=== PATIENT | male | born 1970 | race Two or more races ===

== ENCOUNTER 2017-02-28 15:59 | Inpatient (IN) | payer BC ==
[~2017-02-28] VITALS: Ht 177.8 cm; Wt 93.2 kg
[~2017-02-28 15:59] MED LIST: BENA40TA54 PO; FERR325C PO; FOLI-49 PO; METO-448 PO; MULT-552 PO; PANT40TA3 PO
[2017-02-28] MEDS ORDERED: morphine 4 MG/ML VIAL IV STA (16:20)
[2017-02-28] MEDS ORDERED: SODIUM CHLORIDE 0.9% 1L BAG IV* STA ×2 (16:20→17:01)
--- NOTE | 2017-02-28 16:25 | ERD ---
ER Documentation Chief Complaint Date/Time DATE: 02/28/17 TIME: 16:23 Chief Complaint RT SIDE ABD PAIN , PALPITATIONS , SOB , HAVE BEEN DRINKING X 1 WEEK HPI Patient is a 46-year-old male who presents with 1 day of vaginal onset, constant chest pressure associated with anxiety and shortness of breath. Patient reports a history of alcoholism with abstinence for 1 year, but he relapsed 1 week ago and has been drinking heavily. He also complains of right- sided back pain and right lower quadrant pain for 2 days. He reports subjective fever, no vomiting, no dysuria, no hematuria. ROS All systems reviewed and are negative except as per history of present illness. Medications Home Meds Active Scripts Pantoprazole* (Protonix*) 40 Mg Tablet.dr, 40 MG PO DAILY, #20 TAB Prov:JEFF WILKINSON MD 06/21/15 Folic Acid* (Folic Acid*) 1 Mg Tablet, 1 MG PO DAILY, #30 TAB Prov:LYNDA CASILLAS MD 06/01/15 Reported Medications Metoprolol Tartrate* (Lopressor*) 50 Mg Tab, 50 MG PO BID, #60 TAB 02/28/17 Benazepril Hcl* (Benazepril Hcl*) 20 Mg Tablet, 20 MG PO DAILY, #30 TAB 02/28/17 Multivitamins* (Once Daily*) 1 Tab Tablet, 1 TAB PO DAILY, TAB 08/27/15 Ferrous Sulfate (Iron) 325 Mg Capsr, 325 MG PO DAILY 05/14/15 Discontinued Reported Medications Benazepril Hcl* (Benazepril Hcl*) 40 Mg Tablet, 40 MG PO DAILY, #30 TAB 02/28/17 Discontinued Scripts Metoprolol Tartrate* (Lopressor*) 25 Mg Tab, 50 MG PO BID, #60 TAB Prov:LYNDA CASILLAS MD 06/01/15 Benazepril Hcl* (Lotensin*) 40 Mg Tab, 20 MG PO DAILY, #30 TAB Prov:LYNDA CASILLAS MD 06/01/15 Allergies Allergies: Coded Allergies: No Known Allergies (Verified Allergy, Mild, 08/27/15) PMhx/Soc Past medical history: Alcoholism, hypertension Past surgical history: Denies Social history: Alcohol abuse, smokes cigarettes, denies illicit drugs. History of Surgery: No Anesthesia Reaction: No Hx Neurological Disorder: No Hx Respiratory Disorders: No Hx Cardiac Disorders: Yes (HTN) Hx Psychiatric Problems: No Hx Miscellaneous Medical Probl: No Hx Alcohol Use: Yes Hx Substance Use: Yes Hx Tobacco Use: Yes FmHx Family History: No coronary disease, No diabetes Physical Exam Vitals Vital Signs Date Time Temp Pulse Resp B/P Pulse Ox O2 Delivery O2 Flow Rate FiO2 02/28/17 17:06 Nasal Cannula 2 02/28/17 17:02 98.9 98 17 106/69 98 Nasal Cannula 2.0 02/28/17 16:02 99.8 118 18 140/84 96 Physical Exam Const: Alert, in mild distress Head: Atraumatic Eyes: Normal Conjunctiva, no pallor, no icterus ENT: Normal External Ears, Nose and Mouth. Tacky mucous membranes Neck: Full range of motion..~ No meningismus. No JVD Resp: Clear to auscultation bilaterally, no wheezes, no rales Cardio: Regular rate and rhythm, no murmurs Abd: Soft, right lower quadrant tenderness, no guarding, no rebound Skin: No petechiae or rashes Back: No midline, mild right flank tenderness, no CVA tenderness Ext: No cyanosis, or edema Neur: Awake and alert, cranial nerves II through XII intact bilaterally, patient moves and feels 4 extremities appropriately, no tremor Psych: Appears anxious, normal behavior, appropriately interactive Result Diagram: 02/28/17 1640 02/28/17 1640 Results 24 hrs Laboratory Tests Test 02/28/17 16:40 02/28/17 16:50 02/28/17 18:35 White Blood Count 8.710^3/ul Red Blood Count 4.9610^6/ul Hemoglobin 15.2g/dl Hematocrit 43.6% Mean Corpuscular Volume 87.9fl Mean Corpuscular Hemoglobin 30.6pg Mean Corpuscular Hemoglobin Concent 34.9g/dl Red Cell Distribution Width 14.5% Platelet Count 69315^3/UL Mean Platelet Volume 9.9fl Neutrophils % 54.0% Lymphocytes % 39.7% Monocytes % 4.6% Eosinophils % 0.7% Basophils % 0.7% Nucleated Red Blood Cells % 0.0/100WBC Neutrophils # 4.710^3/ul Lymphocytes # 3.410^3/ul Monocytes # 0.410^3/ul Eosinophils # 0.110^3/ul Basophils # 0.110^3/ul Nucleated Red Blood Cells # 0.010^3/ul Prothrombin Time 12.0Sec Prothrombin Time Ratio 0.9 INR International Normalized Ratio 0.89 Activated Partial Thromboplast Time 27.3Sec Sodium Level 139mmol/L Potassium Level 3.6mmol/L Chloride Level 95mmol/L Carbon Dioxide Level 22mmol/L Anion Gap 26 Blood Urea Nitrogen 16mg/dl Creatinine 0.81mg/dl Glucose Level 92mg/dl Lactic Acid Level 4.9mmol/L 3.7mmol/L Calcium Level 9.8mg/dl Total Bilirubin 0.4mg/dl Direct Bilirubin 0.00mg/dl Indirect Bilirubin 0.4mg/dl Aspartate Amino Transf (AST/SGOT) 61IU/L Alanine Aminotransferase (ALT/SGPT) 43IU/L Alkaline Phosphatase 78IU/L Troponin I < 0.012ng/ml Total Protein 8.3g/dl Albumin 4.8g/dl Globulin 3.50g/dl Albumin/Globulin Ratio 1.37 Lipase 143U/L Urine Color LT. YELLOW Urine Clarity CLEAR Urine pH 5.5 Urine Specific [place] 1.020 Urine Ketones NEGATIVE Urine Nitrite NEGATIVE Urine Bilirubin NEGATIVE Urine Urobilinogen 0.2 E.U./dL Urine Leukocyte Esterase NEGATIVE Urine Microscopic RBC NONE SEEN/HPF Urine Microscopic WBC NONE SEEN/HPF Urine Mucus FEW Urine Hemoglobin 1+ Urine Glucose NEGATIVE% Urine Total Protein NEGATIVE Current Medications Medications (Trade) Dose Ordered Sig/Jewel Route PRN Reason Start Time Stop Time Status Last Admin Dose Admin Sodium Chloride (NS) 2,770 ml BOLUS OVER 2 HOURS STAT IV* 02/28/17 16:20 02/28/17 16:58 DC 02/28/17 16:45 Morphine Sulfate (morphine) 4 mg ONCE STAT IV 02/28/17 16:20 02/28/17 16:22 DC 02/28/17 16:47 Lorazepam (Ativan) 2 mg ONCE ONCE IV 02/28/17 16:30 02/28/17 16:31 DC 02/28/17 16:46 Sodium Chloride (NS) 2,770 ml BOLUS OVER 2 HOURS STAT IV* 02/28/17 17:01 02/28/17 17:03 DC Lorazepam (Ativan) 2 mg ONCE ONCE IV 02/28/17 18:30 02/28/17 18:31 DC 02/28/17 18:25 IV Flush 10 ml 10 ml STK-MED ONCE .ROUTE 02/28/17 19:36 02/28/17 19:37 DC 02/28/17 19:44 Sodium Chloride (NS) 100 ml @ ud STK-MED ONCE .ROUTE 02/28/17 19:36 02/28/17 19:37 DC 02/28/17 19:44 Iohexol 150 ml 150 ml STK-MED ONCE .ROUTE 02/28/17 19:36 02/28/17 19:37 DC 02/28/17 19:44 Sodium Chloride (NS) 1,000 ml @ 1,000 mls/hr Q1H ONCE IV 02/28/17 20:30 02/28/17 21:29 Procedures/MDM EKG read by me: Time 1633, rate 94 Rhythm: Normal sinus [place]: Normal Intervals: Normal ST-T waves: Nonspecific ST changes in V5 V6, ST depression with T-wave inversion in leads III and aVF Ectopy: No Q-waves: No Impression: ST-T wave changes in inferior and lateral leads may be due to ischemia. MDM: Patient is a 46-year-old male who presents to the ER with multiple complaints. He reports chest pressure, abdominal pain, and anxiety due to alcohol withdrawal. He was found to have a low-grade temperature, and elevated lactic acid, which raised some suspicion for sepsis. However, the patient's temperature normalized and he never had a true fever, he has no leukocytosis, no source of infection on workup. Initially, antibiotics were not given due to low suspicion for sepsis. Since the lactic acid remains elevated, I will give the patient a dose of Rocephin to cover for occult sepsis. It is also possible that lactic acid could be due to alcohol abuse with liver dysfunction. However , there is no evidence of cirrhosis on abdominal CT scan. CT scan also does not demonstrate any abnormality of the appendix, gallbladder, urinary tract, or intestines. I have low suspicion for intestinal ischemia due to normal with WBC count, resolution of pain, and significant abdominal tenderness more than reported pain. Repeat abdominal exam is now benign. The patient does have ST depressions with T-wave inversion in the inferior leads of his EKG. His first troponin is negative. His symptoms have resolved with Ativan and IV fluids, but his lactic acid remains elevated. I will admit him to Dr. Jack for further workup of lactic acidosis and chest pain. He was given aspirin in the ER. Cultures were sent prior to administration of antibiotics. The patient complains primarily of anxiety, but does not have tremor or other symptoms of alcohol withdrawal. Departure Diagnosis: Primary Impression: Chest pain Chest pain type: precordial pain Qualified Code: R07.2 - Precordial pain Additional Impressions: Alcohol withdrawal syndrome Complication of substance-induced condition: uncomplicated Qualified Code: F10.230 - Alcohol withdrawal syndrome, uncomplicated Lactic acidosis Condition: Stable ROSE CAGE MD February 28, 2017 16:25
[2017-02-28] MEDS ORDERED: LORAZEPAM 2 MG INJ IV ONE ×2 (16:30→18:30)
[2017-02-28] MEDS ORDERED: METO-429 PO (16:41)
[2017-02-28] MEDS ORDERED: BENA20TA48 PO (16:41)
[2017-02-28] MEDS ORDERED: BENA40TA41 PO (16:41)
--- NOTE | 2017-02-28 16:49 | RADRPT ---
PROCEDURE: XR Chest. CLINICAL INDICATION: Chest pain. Possible sepsis TECHNIQUE: Portable AP upright views of the chest were obtained. COMPARISON: 08/27/2015 FINDINGS: The cardiomediastinal silhouette is within normal limits. The lungs are clear. There is no evidenc e for pleural effusion, pneumothorax or pulmonary vascular congestion. The osseous structures are i ntact with no evidence for acute abnormality. RPTAT:HJJR IMPRESSION: No evidence for acute intrathoracic pathology. Physician Rei Date Time Electronically viewed and signed by Jus Mcclain Physician on 02/28/2017 16:49 /
[2017-02-28 17:02] VITALS: TEMP 98.9
[2017-02-28 17:26] LABS: ADD SCAN DIFF NO
[2017-02-28 17:28] LABS: BASOPHIL # 0.1 10^3/ul (0.0-0.1); BASOPHILS % 0.7 % (0.0-2.0); EOSINOPHILS # 0.1 10^3/ul (0.0-0.5); EOSINOPHILS % 0.7 % (0.0-7.0); HEMATOCRIT 43.6 % (42.0-52.0); HEMOGLOBIN 15.2 g/dl (14.0-18.0); LYMPHOCYTES # 3.4 10^3/ul (0.8-2.9); LYMPHOCYTES % 39.7 % (15.0-51.0); MEAN CORPUSCULAR HEMOGLOBIN 30.6 pg (29.0-33.0); MEAN CORPUSCULAR HGB CONC 34.9 g/dl (32.0-37.0); MEAN CORPUSCULAR VOLUME 87.9 fl (82.0-101.0); MEAN PLATELET VOLUME 9.9 fl (7.4-10.4); MONOCYTE # 0.4 10^3/ul (0.3-0.9); MONOCYTES % 4.6 % (0.0-11.0); NEUTROPHIL # 4.7 10^3/ul (1.6-7.5); PLATELET COUNT 228 10^3/UL (140-415); RED BLOOD COUNT 4.96 10^6/ul (4.70-6.10); RED CELL DISTRIBUTION WIDTH 14.5 % (11.5-14.5); WHITE BLOOD COUNT 8.7 10^3/ul (4.8-10.8)
[2017-02-28 17:37] LABS: INR 0.89; PT RATIO 0.9
[2017-02-28 17:38] LABS: PARTIAL THROMBOPLASTIN TIME 27.3 Sec (25.0-35.0)
[2017-02-28 17:47] LABS: ADD UMIC YES; URINE BILIRUBIN (Dip) NEGATIVE (NEGATIVE); URINE BLOOD (Dip) 1+ (NEGATIVE); URINE COLOR LT. YELLOW (YELLOW); URINE GLUCOSE (Dip) NEGATIVE (NEGATIVE); URINE KETONES (Dip) NEGATIVE (NEGATIVE); URINE LEUKOCYTE ESTERASE (Dip) NEGATIVE (NEGATIVE); URINE NITRITE (Dip) NEGATIVE (NEGATIVE); URINE TOTAL PROTEIN (Dip) NEGATIVE (NEGATIVE); URINE UROBILINOGEN (Dip) 0.2 E.U./dL (0.1-1.0)
[2017-02-28 17:51] LABS: ALBUMIN 4.8 g/dl (3.3-4.9); CHLORIDE 95 mmol/L (97-110)
[2017-02-28 17:52] LABS: POTASSIUM 3.6 mmol/L (3.5-5.1); SODIUM 139 mmol/L (135-144)
[2017-02-28 17:54] LABS: ALBUMIN/GLOBULIN RATIO 1.37; ALKALINE PHOSPHATASE 78 IU/L (42-121); ANION GAP 26 (8-16); ASPARTATE AMINO TRANSFERASE 61 IU/L (15-46); BILIRUBIN,INDIRECT 0.4 mg/dl (0-1.1); BILIRUBIN,TOTAL 0.4 mg/dl (0.2-1.3); CARBON DIOXIDE 22 mmol/L (21-31); CREATININE 0.81 mg/dl (0.61-1.24); TOTAL PROTEIN 8.3 g/dl (6.1-8.1)
[2017-02-28 17:55] LABS: ALANINE AMINOTRANSFERASE 43 IU/L (13-69); BLOOD UREA NITROGEN 16 mg/dl (7-20); CALCIUM 9.8 mg/dl (8.4-10.2); GLUCOSE 92 mg/dl (70-220)
[2017-02-28 18:07] LABS: MUCUS,URINE FEW; URINE RBCS NONE SEEN /HPF (0)
[2017-02-28 18:09] LABS: TROPONIN-I < 0.012 ng/ml (0.00-0.12)
[2017-02-28] MEDS ORDERED: SOD CHLORIDE 0.9% 100 ML ONE (19:36)
[2017-02-28] MEDS ORDERED: IOHEXOL 300MG/ML 150 ML BTL ONE (19:36)
--- NOTE | 2017-02-28 19:51 | RADRPT ---
PROCEDURE: CT Abdomen and Pelvis with contrast. CLINICAL INDICATION: Sepsis, pain TECHNIQUE: CT of the abdomen and pelvis was performed on a multi-detector scanner following the un complicated IV administration of 100 cc of Omnipaque 300. Coronal and sagittal images were reformat haydee from the axial data set. One or more of the following dose reduction techniques were used: auto mated exposure control, adjustment of the mA and/or kV according to patient size, use of iterative reconstruction technique. CTDI = 15.69 mGy. DLP = 972.63 mGy-cm. COMPARISON: CT, 02/22/2015 FINDINGS: CT abdomen: The lung bases are clear. The heart size is normal, without pericardial effusion. The liver is fat ty infiltrated, without evidence of focal mass. Gallbladder, biliary tree, pancreas, spleen, adrena l glands and kidneys are unremarkable. No urolithiasis or obstructive uropathy is identified. The stomach is grossly unremarkable. There is no abdominal aortic aneurysm or dissection. Aortic vascular calcifications are present. T here is no retroperitoneal lymphadenopathy. The lamont hepatis region is clear. CT pelvis: No bowel obstruction, free intraperitoneal air or abscess is identified. The appendix is well visua lized and normal. No diverticulosis, diverticulitis or colitis is identified. Urinary bladder is g rossly unremarkable. No pelvic mass, free fluid or lymphadenopathy is identified. Small fat-contain ing left inguinal hernia is noted without incarceration. The surrounding osseous structures are remarkable for degenerative spondylosis of the spine. No ost eolytic or osteoblastic lesion is detected. IMPRESSION: 1. Hepatic steatosis is noted. 2. Aortoiliac atherosclerotic calcifications are present. 3. Small fat-containing left inguinal hernia is noted, without incarceration. 4. No mass, abscess, lymphadenopathy, or focal acute inflammatory process is identified. RPTAT: QQ .Rolando Masterson MD, Date Time Electronically viewed and signed by .Rolando Masterson MD, on 02/28/2017 19:51 .R/
[2017-02-28] MEDS ORDERED: ASPIRIN 81 MG TAB PO ONE (20:30)
[2017-02-28] MEDS ORDERED: morphine 2 MG INJ IV PRN (20:30)
[2017-02-28] MEDS ORDERED: ACETAMINOPHEN 325 MG TAB PO PRN ×2 (20:30)
[2017-02-28] MEDS ORDERED: ONDANSETRON 4 MG INJ IV PRN ×2 (20:30)
[2017-02-28] MEDS ORDERED: NITROGLYCERIN (SL) 0.4 MG TAB SL PRN (20:30)
[2017-02-28] MEDS ORDERED: NA PHOSPHATE/BIPHOS 133 ML ENEMA PR PRN (20:30)
[2017-02-28] MEDS ORDERED: SOD CHLORIDE 0.9% 1,000 ML IV ONE (20:30)
[2017-02-28] MEDS ORDERED: hydrALAzine 20 MG INJ IV PRN (20:30)
[2017-02-28] MEDS ORDERED: MAGNESIUM HYDROXIDE 30ML CUP PO PRN (20:30)
[2017-02-28] MEDS ORDERED: NACL 0.9% 3 ML SYG IV SCH (20:30)
[2017-02-28] MEDS ORDERED: HYDROCODONE/APAP (5/325) TAB PO PRN (20:30)
[2017-02-28] MEDS ORDERED: CEFTRIAXONE 1 GM/50 ML (PMX) 50 ML IVPB ONE (20:30)
[2017-02-28] MEDS ORDERED: ALBUTEROL/IPRATROPIUM (NEB) 3 ML AMP HHN PRN (20:30)
[2017-02-28] MEDS ORDERED: DOCUSATE SODIUM 100 MG CAP PO PRN (20:30)
[2017-02-28 21:37] VITALS: PULSE 81
[2017-02-28] MEDS: SOD CHLORIDE 0.9% 1,000 ML IV SCH (21:53)
[2017-02-28] MEDS: METOPROLOL 50 MG TAB PO SCH (21:54)
[2017-02-28] MEDS: HEPARIN 5,000 UNIT/0.5 ML VIAL SC SCH (22:09)
[2017-02-28 22:20] VITALS: Ht 177.8 cm; Wt 93.2 kg
[2017-02-28 22:27] VITALS: BP 140/87; RESP 18
[2017-02-28] MEDS: LORAZEPAM 2 MG INJ IV PRN (23:00)
[2017-02-28 23:14] LABS: CREATINE KINASE 691 IU/L (23-200)
[2017-02-28 23:25] LABS: CK-MB 1.73 ng/ml (0.0-2.4)
[2017-02-28 23:35] LABS: TROPONIN-I < 0.012 ng/ml (0.00-0.12)
[2017-03-01] VITALS (8 sets, daily range): BP systolic 138–159; BP diastolic 82–90; PULSE 74–95; RESP 17–20
[2017-03-01] MEDS ORDERED: ZOLPIDEM 5 MG TAB PO PRN (02:10)
[2017-03-01 02:50] LABS: CREATINE KINASE 680 IU/L (23-200)
[2017-03-01 03:03] LABS: CK-MB 1.52 ng/ml (0.0-2.4)
[2017-03-01 03:05] LABS: TROPONIN-I < 0.012 ng/ml (0.00-0.12)
[2017-03-01] MEDS ORDERED: PANTOPRAZOLE (EC) 40 MG TAB PO SCH (06:00)
[2017-03-01 06:55] LABS: CHOL/HDL RATIO 4.1 RATIO
[2017-03-01 07:27] LABS: THYROID STIMULATING HORMONE 2.82 MIU/L (0.465-4.680)
[2017-03-01] MEDS: LORAZEPAM 2 MG INJ IV PRN (08:09)
[2017-03-01] MEDS: METOPROLOL 50 MG TAB PO SCH (08:09)
[2017-03-01 08:11] LABS: ADD SCAN DIFF NO
[2017-03-01 08:16] LABS: BASOPHILS % 0.5 % (0.0-2.0); EOSINOPHILS # 0.1 10^3/ul (0.0-0.5); HEMATOCRIT 37.7 % (42.0-52.0); HEMOGLOBIN 12.8 g/dl (14.0-18.0); LYMPHOCYTES # 1.9 10^3/ul (0.8-2.9); MEAN CORPUSCULAR HEMOGLOBIN 30.5 pg (29.0-33.0); MEAN PLATELET VOLUME 9.8 fl (7.4-10.4); MONOCYTE # 0.5 10^3/ul (0.3-0.9); MONOCYTES % 8.1 % (0.0-11.0); NEUTROPHIL # 3.3 10^3/ul (1.6-7.5); NEUTROPHILS % 57.1 % (39.0-77.0); PLATELET COUNT 156 10^3/UL (140-415); RED BLOOD COUNT 4.19 10^6/ul (4.70-6.10); RED CELL DISTRIBUTION WIDTH 14.1 % (11.5-14.5); WHITE BLOOD COUNT 5.8 10^3/ul (4.8-10.8)
[2017-03-01] MEDS: SOD CHLORIDE 0.9% 1,000 ML IV SCH (08:29)
[2017-03-01] MEDS: HEPARIN 5,000 UNIT/0.5 ML VIAL SC SCH (08:29)
[2017-03-01 08:35] LABS: POTASSIUM 4.5 mmol/L (3.5-5.1)
[2017-03-01 08:38] LABS: CREATININE 0.7 mg/dl (0.61-1.24)
[2017-03-01 08:39] LABS: CALCIUM 9.2 mg/dl (8.4-10.2); MAGNESIUM 1.5 mg/dl (1.7-2.5); PHOSPHORUS 3.4 mg/dl (2.5-4.9)
[2017-03-01] MEDS ORDERED: FOLIC ACID 1 MG TAB PO SCH (09:00)
[2017-03-01] MEDS ORDERED: FERROUS SULFATE (EC) 325 MG TAB PO SCH (09:00)
[2017-03-01] MEDS ORDERED: BENAZEPRIL 20 MG TAB PO SCH (09:00)
[2017-03-01] MEDS ORDERED: MULTIVITAMINS THERAPEUTIC TAB PO SCH (09:00)
[2017-03-01] MEDS ORDERED: ASPIRIN (EC) 325 MG TAB PO SCH (09:00)
[2017-03-01] MEDS ORDERED: MULTIVITAMINS 10 ML, THIAMINE 100 MG, FOLIC ACID 1 MG in SOD CHLORIDE 0.9% 1,000 ML IVPB SCH (09:00)
[2017-03-01] MEDS ORDERED: LEVOFLOXACIN 750MG/D5W (PMX) 150 ML IVPB SCH (09:00)
[2017-03-01] MEDS ORDERED: NON-FORMULARY/PATIENT OWN MED (Ferrous Sulfate (Iron) 325 MG) PO SCH (09:00)
[2017-03-01] MEDS: CHLORDIAZEPOXIDE 25 MG CAP PO SCH ×2 (09:43→13:27)
--- NOTE | 2017-03-01 10:12 | HP ---
Date/Time of Note Date/Time of Note DATE: 03/01/17 TIME: 10:06 Assessment/Plan VTE Prophylaxis VTE Prophylaxis Intervention: heparin Lines/Catheters IV Catheter Type (from Nrsg): Peripheral IV Urinary Cath still in place: No Assessment/Plan Assessment/Plan IMPRESSION 1. Alcohol Intoxication 2. Chest pain with abnormal EKG with ST depression 3. Lactic Acidosis 4. Fatty liver PLAN - cont telemetry monitoring - banana bag, Librium and as needed ativan - aspirin - obtain 2D-echo and Cardiology consult - trend trop HPI/ROS Admit Date/Time Admit Date/Time February 28, 2017 at 20:23 Hx of Present Illness This is a 46-year-old gentleman with past medical history of hypertension, GERD , and anemia who presents to [facility] c/o abd pain and anxiety after having 7 days of binge drinking. He also reported vague chest pain. He was admitted here in 2014 after same presentation. He said he quit drinking since 2014, but relapsed recently. In ER, EKG showed ST depression. CT a/p showed fatty liver and small left inguinal hernia. Lab showed initial lactate of 3.7. . PMH/Family/Social Social History Smoking Status: Current every day smoker Exam/Review of Systems Vital Signs Vitals Vital Signs Date Time Temp Pulse Resp B/P Pulse Ox O2 Delivery O2 Flow Rate FiO2 03/01/17 08:13 95 03/01/17 06:55 98.3 18 159/83 96 02/28/17 20:45 Room Air 02/28/17 17:06 2 Intake and Output 02/28/17 02/28/17 03/01/17 15:00 23:00 07:00 Intake Total 300 ml Output Total 400 ml Balance -100 ml Exam Constitutional: alert, oriented, well developed Head: normocephalic Eyes: EOMI, PERRL Respiratory: clear to auscultation, normal air movement Cardiovascular: nl pulses, regular rate and rhythm Gastrointestinal: non-tender, soft Labs Result Diagram: 03/01/17 0753 03/01/17 0753 Medications Medications Current Medications Ondansetron HCl (Zofran Inj) 4 mg Q6H PRN IV NAUSEA AND/OR VOMITING; Start at 20:30 Acetaminophen (Tylenol Tab) 650 mg Q6H PRN PO PAIN LEVEL 1-3 OR FEVER; Start at 20:30 Acetaminophen/ Hydrocodone Bitart ([place] (5/325)) 1 tab Q6H PRN PO MODERATE PAIN LEVEL 4-6 Last administered on 03/01/17 06:06; Admin Dose 1 TAB; Start at 20:30 Morphine Sulfate (morphine) 2 mg Q4H PRN IV SEVERE PAIN LEVEL 7-10; Start 02/28 at 20:30 Docusate Sodium (Colace) 100 mg Q12H PRN PO CONSTIPATION; Start 02/28/17 at 20: 30 Magnesium Hydroxide (Milk Of Mag) 30 ml DAILY PRN PO CONSTIPATION; Start at 20:30 Sodium Biphosphate/ Sodium Phosphate (Fleet Enema) 133 ml DAILY PRN [place] CONSTIPATION; Start 02/28/17 at 20:30 Heparin Sodium (Porcine) (Heparin (5000 Units/0.5 ml)) 5,000 unit Q12 SC Last administered on 03/01/17 08:29; Admin Dose 5,000 UNIT; Start 02/28/17 at 21:00 Lorazepam 0.5 mg 0.5 mg Q6H PRN IV ANXIETY Last administered on 03/01/17 08:09 ; Admin Dose 0.5 MG; Start 02/28/17 at 20:30 Sodium Chloride 1,000 ml @ 100 mls/hr Q10H IV Last administered on 03/01/17 08:29; Admin Dose 100 MLS/HR; Start 02/28/17 at 20:28 Levofloxacin/ Dextrose (Levaquin 750 Mg/ D5W 150 ml (Pmx)) 150 ml @ 100 mls/hr DAILY IVPB Last administered on 03/01/17 08:09; Admin Dose 100 MLS/HR; Start 03/01/17 at 09:00 Hydralazine HCl (Apresoline) 10 mg Q6H PRN IV ELEVATED BLOOD PRESSURE; Start at 20:30 Nitroglycerin (Nitroglycerin (Sl Tab) 0.4 Mg) 1 tab Q5M PRN SL ANGINA; Start at 20:30 Aspirin (Ecotrin) 325 mg DAILY PO Last administered on 03/01/17 08:08; Admin Dose 325 MG; Start 03/01/17 at 09:00 Benazepril HCl (Lotensin) 20 mg DAILY PO Last administered on 03/01/17 08:09; Admin Dose 20 MG; Start 03/01/17 at 09:00 Folic Acid (Folic Acid) 1 mg DAILY PO Last administered on 03/01/17 08:08; Admin Dose 1 MG; Start 03/01/17 at 09:00 Metoprolol Tartrate (Lopressor) 50 mg BID PO Last administered on 03/01/17 08: 09; Admin Dose 50 MG; Start 02/28/17 at 21:00 Multivitamins Therapeutic (Theragran) 1 tab DAILY PO Last administered on 08:08; Admin Dose 1 TAB; Start 03/01/17 at 09:00 Pantoprazole (Protonix Tab) 40 mg DAILY@06 PO Last administered on 03/01/17 06 :06; Admin Dose 40 MG; Start 03/01/17 at 06:00 Ferrous Sulfate (Ferrous Sulfate (Ec)) 325 mg DAILY PO Last administered on 08:08; Admin Dose 325 MG; Start 03/01/17 at 09:00 Zolpidem Tartrate 10 mg 10 mg HS PRN PO INSOMNIA Last administered on 02:16; Admin Dose 10 MG; Start 03/01/17 at 02:10 Multivitamins/ Thiamine HCl/ Folic Acid/Sodium Chloride (Mvi Adult/ Vitamin B1/ Folic Acid/NS) 1,011.2 ml @ 125 mls/ hr DAILY@09 IVPB Last administered on 09:42; Admin Dose 125 MLS/HR; Start 03/01/17 at 09:00; Stop 03/04/17 at 15:00 Chlordiazepoxide (Librium) 50 mg TID PO Last administered on 03/01/17 09:43; Admin Dose 50 MG; Start 03/01/17 at 09:00 GABE WHITE MD March 01, 2017 10:12
--- NOTE | 2017-03-01 13:25 | PDOCDIS ---
Discharge Instructions CONDITION Patient Condition: Good HOME CARE INSTRUCTIONS: Diet Instructions: Regular ACTIVITY: Activity Restrictions: No Restrictions FOLLOW UP/APPOINTMENTS Appointments F/U WITH YOUR PCP IN 1-2 WEEKS LANDRY SANTILLAN March 01, 2017 13:25
[2017-03-01] MEDS ORDERED: MAGNESIUM OXIDE 400 MG TAB PO ONE (13:30)
--- NOTE | 2017-03-01 17:23 | RADRPT ---
Echocardiogram Report Patient Name: BRANDO SUTTON Gender: Male Date: 1970 Study Date: 01-Mar-2017 [employer] Developer: KIRSTY Location: E Ref. Physician: LEAH ROSS Quality: Adequate Procedures: Transthoracic echocardiogram with complete 2D, M-Mode, and doppler examination. Indications: Chest Pain. 2D/M Mode Doppler Measurement Value Normal Ranges Measurement Value Normal Ranges AoR Diam MM 3.9 cm AV Peak [place] 1.4 m/sec ACS MM 2.3 cm AV Peak PG 7.7 mmHg LVIDd 2D 5.0 3.5 - 5.6 cm LVOT Peak [place] 1.0 m/sec LVIDs 2D 3.2 2.1 - 4.1 cm LVOT Peak PG 3.6 mmHg LVPWd 2D 1.1 0.6 - 1.1 cm MV E Peak [place] 0.9 m/sec IVSd 2D 1.1 0.6 - 1.1 cm MV A Peak [place] 0.7 m/sec EDV 2D 115.5 cm3 MV E/A 1.3 ESV 2D 32.3 cm3 MV Decel Time 204 msec LA Dimen 2D 3.7 2.3 - 4.0 cm MV Decel [place] 5 MV E/A 1.3 PV Peak [place] 1.1 m/sec PV Peak PG 5.0 mmHg Findings Left Ventricle: Normal left ventricular systolic function. Normal left ventricular cavity size. Normal left ventricular wall thickness. Ejection fraction is visually estimated at 65 %. Tissue Doppler/Mitral Doppler indices are within normal limits. Right Ventricle: Normal right ventricular size. Normal right ventricular systolic function. Left Atrium: The left atrium is normal in size. Right Atrium: The right atrium is normal in size. Atrial Septum: Normal atrial septum. Mitral Valve: Normal appearance and function of the mitral valve with trace physiologic regurgitation. Aortic Valve: No significant aortic stenosis or insufficiency. Normal trileaflet aortic valve structure. Tricuspid Valve: Normal appearance and function of the tricuspid valve with trace physiologic regurgitation. Unable to obtain RVSP due to minimal presence of tricuspid regurgitation. Pulmonic Valve: Normal pulmonic valve appearance. No evidence of pulmonic regurgitation. Pericardium: Normal pericardium with no significant pericardial effusion. Aorta: There is mild aortic root dilation. IVC: Normal size and normal respiratory collapse consistent with normal right atrial pressure. Pulmonary Artery: Normal pulmonary artery size. Conclusions 1.Normal left ventricular systolic function. Normal left ventricular cavity size. Normal left ventricular wall thickness. Ejection fraction is visually estimated at 65 %. Tissue Doppler/Mitral Doppler indices are within normal limits. 2.No significant valvular stenosis or regurgitation seen. 3.Unable to obtain RVSP due to minimal presence of tricuspid regurgitation. RA pressure is 3 mmHg. Electronically Signed By: Joseluis Del Rosario 01-Mar-2017 17:22:45 -0700 Patient Name: BRANDO SUTTON Study Date: 01-Mar-2017 [id number]
--- NOTE | 2017-03-01 20:04 | DS ---
DATE OF ADMISSION: 02/28/2017 DATE OF DISCHARGE: 03/01/2017 FINAL DIAGNOSES: 1. Anxiety attack with alcohol intoxication, now resolved. 2. Chest pain, resolved. The patient is to follow up with primary care provider as an outpatient. HOSPITAL COURSE: The patient is a 46-year-old male with a history of anxiety, occasional alcohol ab use, hypertension, GERD. The patient had panic attacks in the past, presents with anxiety and havin g 7 days of drinking. Also reported the chest pain. He presented in 2014 with the same presentatio n. EKG did show ST depression. Of note, the patient has been worked up for coronary artery disease in the past. He did have an echo during this hospitalization that showed normal EF at 65%. States that he had a stress test as an outpatient that was negative several years ago. The patient denied any further chest pain. He states that he wanted to go home and he was going to follow up with his PCP and hospital administrator. On the day of discharge, the patient's vital signs, labs, physical exam were stable. He had no acute complaints and his questions were answered. The patient did appear stable for discharge, as his troponins were negative x3 and his echo showed no signs of acute coronary syn drome. Once again, on day of discharge, the patient's vitals, labs, physical exam were stable. He had no acute complaints. Questions were answered. CONDITION ON DISCHARGE: Stable. DISPOSITION: To home. MEDICATIONS: The patient to continue his usual home medications. FOLLOWUP: The patient is to follow up with his PCP and hospital administrator as soon as possible for further workup. Greater than 30 minutes were spent coordinating discharge of this patient. Dictated By: LANDRY SANTILLAN MD BS/NTS Conf#: [id number] DID#: [id number] CC: GABE WHITE MD;*EndCC*
[2017-03-02] MEDS ORDERED: ASPIRIN (EC) 81 MG TAB PO SCH (09:00)
== END 2017-03-01 13:45 | disposition home or self-care (01) | DRG 897 ==
LOC: E/R 15:59 → TEL 20:23 → OBSVTOIN 20:23 → TEL 20:54
PROVIDERS: ADMIT Internal Medicine; ATTEND Internal Medicine
DX: F10.180 Alcohol abuse with alcohol-induced anxiety disorder (principal); E87.2 Acidosis; K76.0 Fatty (change of) liver, not elsewhere classified; R07.9 Chest pain, unspecified
CPT/HCPCS: 36415; 71010; 74177; 80048; 80053; 80061; 81001; 81003; 82550; 82553; 83036; 83605; 83690; 83735; 84100; 84439; 84443; 84484; 85025; 85610; 85730; 87040; 93005; 93306; 96374; 96375; J0696; J1644; J1956; J2060; J2270; J3411; J7030; Q9967

== ENCOUNTER 2017-05-04 12:55 | Inpatient (IN) | payer BC ==
[~2017-05-04] VITALS: Ht 177.8 cm; Wt 89.9 kg
[~2017-05-04 12:55] MED LIST changes: +BENA20TA48 PO; -BENA40TA54 PO; +METO-429 PO; -METO-448 PO
[2017-05-04] MEDS ORDERED: SOD CHLORIDE 0.9% 1,000 ML IV STA (15:44)
[2017-05-04] MEDS ORDERED: ONDANSETRON 4 MG INJ IV STA ×2 (15:44→18:26)
[2017-05-04] MEDS ORDERED: morphine 4 MG/ML VIAL IV STA (15:44)
--- NOTE | 2017-05-04 15:53 | ERD ---
ER Documentation Chief Complaint Date/Time DATE: 05/04/17 TIME: 15:52 Chief Complaint N/V FOR THE PAST 3 DAYS. CHEST PAIN AND RIGHT SIDE ABD PAIN. RECENT TRAVEL HPI This 47-year-old male states that he was drinking heavily in [place]. He recently came back. His last drink was yesterday. States that for 3 days though he has had some right upper quadrant abdominal pain as well as some burning chest pain without shortness of breath and nausea and vomiting. His vomiting is nonbloody and nonbilious. States that he does not want to drink anymore . ROS All systems reviewed and are negative except as per history of present illness. Medications Home Meds Active Scripts Naproxen* (Naproxen*) 500 Mg Tablet, 500 MG PO BID Y for PAIN, #14 TAB Prov:AMY WESTBROOK DO 05/04/17 Ondansetron (Zofran Odt) 4 Mg Tab.rapdis, 4 MG PO Q6 for NAUSEA AND/OR VOMITING , #10 Prov:AMY WESTBROOK DO 05/04/17 Chlordiazepoxide* (Chlordiazepoxide*) 25 Mg Capsule, 25 MG PO taper, #13 CAP take 3 tabs Thursday and Thursday, take 2 tabs and thursday take 1 tab for last three days. Prov:AMY WESTBROOK DO 05/04/17 Pantoprazole* (Protonix*) 40 Mg Tablet.dr, 40 MG PO DAILY, #20 TAB Prov:JEFF WILKINSON MD 06/21/15 Folic Acid* (Folic Acid*) 1 Mg Tablet, 1 MG PO DAILY, #30 TAB Prov:LYNDA CASILLAS MD 06/01/15 Reported Medications Metoprolol Tartrate* (Lopressor*) 50 Mg Tab, 50 MG PO BID, #60 TAB 02/28/17 Benazepril Hcl* (Benazepril Hcl*) 20 Mg Tablet, 20 MG PO DAILY, #30 TAB 02/28/17 Multivitamins* (Once Daily*) 1 Tab Tablet, 1 TAB PO DAILY, TAB 08/27/15 Ferrous Sulfate (Iron) 325 Mg Capsr, 325 MG PO DAILY 05/14/15 Allergies Allergies: Coded Allergies: No Known Allergies (Verified Allergy, Mild, 08/27/15) PMhx/Soc History of Surgery: No Anesthesia Reaction: No Hx Neurological Disorder: No Hx Respiratory Disorders: No Hx Cardiac Disorders: No Hx Psychiatric Problems: No Hx Miscellaneous Medical Probl: No Hx Alcohol Use: Yes Hx Substance Use: No Hx Tobacco Use: Yes Physical Exam Vitals Vital Signs Date Time Temp Pulse Resp B/P Pulse Ox O2 Delivery O2 Flow Rate FiO2 05/04/17 21:08 98.4 82 18 131/69 97 Nasal Cannula 2.0 05/04/17 19:12 82 20 114/69 98 Room Air 05/04/17 17:04 81 20 97/55 100 Nasal Cannula 2.0 05/04/17 15:45 91 20 107/67 97 Room Air 05/04/17 13:00 98.9 92 20 136/81 98 Physical Exam Const: [] Mild distress, very uncomfortable, vomiting Head: Atraumatic Eyes: Normal Conjunctiva ENT: Normal External Ears, Nose and Mouth. Dry mucous membranes of mouth. Neck: Full range of motion..~ No meningismus. Resp: Clear to auscultation bilaterally Cardio: Regular rate and rhythm, no murmurs Abd: Soft, mild epigastric and right upper quadrant tenderness without guarding or rebound., non distended. Normal bowel sounds Skin: No petechiae or rashes Back: No midline or flank tenderness Ext: No cyanosis, or edema Neur: Awake and alert and oriented 3, cranial nerves II through XII intact, no focal deficits Psych: Normal Mood and Affect Result Diagram: 05/04/17 1550 05/04/17 1550 Results 24 hrs Laboratory Tests Test 05/04/17 15:50 05/04/17 16:15 White Blood Count 7.110^3/ul Red Blood Count 4.7510^6/ul Hemoglobin 14.6g/dl Hematocrit 41.4% Mean Corpuscular Volume 87.2fl Mean Corpuscular Hemoglobin 30.7pg Mean Corpuscular Hemoglobin Concent 35.3g/dl Red Cell Distribution Width 13.2% Platelet Count 8210^3/UL Mean Platelet Volume 10.3fl Neutrophils % 80.0% Band Neutrophils % 3.0% Lymphocytes % 16.0% Monocytes % 1.0% Neutrophils # 5.710^3/ul Lymphocytes # 1.110^3/ul Monocytes # 0.110^3/ul Platelet Estimate PLT APPEAR DECREASED Sodium Level 127mmol/L Potassium Level 3.5mmol/L Chloride Level 78mmol/L Carbon Dioxide Level 20mmol/L Anion Gap 33 Blood Urea Nitrogen 20mg/dl Creatinine 0.98mg/dl Glucose Level 303mg/dl Calcium Level 8.2mg/dl Total Bilirubin 0.7mg/dl Direct Bilirubin 0.00mg/dl Indirect Bilirubin 0.7mg/dl Aspartate Amino Transf (AST/SGOT) 500IU/L Alanine Aminotransferase (ALT/SGPT) 283IU/L Alkaline Phosphatase 79IU/L Troponin I < 0.012ng/ml Total Protein 7.4g/dl Albumin 4.3g/dl Globulin 3.10g/dl Albumin/Globulin Ratio 1.38 Lipase 318U/L Urine Color YELLOW Urine Clarity CLEAR Urine pH 6.0 Urine Specific Brandon 1.024 Urine Ketones 2+mg/dL Urine Nitrite NEGATIVEmg/dL Urine Bilirubin NEGATIVEmg/dL Urine Urobilinogen 1+mg/dL Urine Leukocyte Esterase NEGATIVELeu/ul Urine Microscopic RBC 5/HPF Urine Microscopic WBC 0/HPF Urine Hemoglobin 1+mg/dL Urine Glucose NEGATIVEmg/dL Urine Total Protein 2+mg/dl Current Medications Medications (Trade) Dose Ordered Sig/Jewel Route PRN Reason Start Time Stop Time Status Last Admin Dose Admin Sodium Chloride (NS) 1,000 ml @ 1,000 mls/hr Q1H STAT IV 05/04/17 15:44 05/04/17 16:43 DC 05/04/17 16:20 Morphine Sulfate (morphine) 4 mg ONCE STAT IV 05/04/17 15:44 05/04/17 15:46 DC 05/04/17 16:20 Ondansetron HCl (Zofran Inj) 4 mg ONCE STAT IV 05/04/17 15:44 05/04/17 15:46 DC 05/04/17 16:20 Chlordiazepoxide (Librium) 100 mg ONCE ONCE PO 05/04/17 17:30 05/04/17 17:52 DC 05/04/17 17:58 Lorazepam (Ativan) 1 mg ONCE ONCE IV 05/04/17 17:30 05/04/17 17:52 DC 05/04/17 17:57 Aspirin (Aspirin) 324 mg ONCE ONCE PO 05/04/17 18:00 05/04/17 18:01 DC 05/04/17 17:57 Miscellaneous Medication (Gi Cocktail (2)) 40 ml ONCE ONCE PO 05/04/17 18:30 05/04/17 18:31 DC 05/04/17 18:28 Ondansetron HCl (Zofran Inj) 4 mg ONCE STAT IV 05/04/17 18:26 05/04/17 18:27 DC 05/04/17 18:27 Chlordiazepoxide 100 mg 100 mg ONCE ONCE PO 05/04/17 19:00 05/04/17 19:01 DC 05/04/17 19:12 Sodium Chloride (NS) 1,000 ml @ 1,000 mls/hr Q1H ONCE IV 05/04/17 20:00 05/04/17 20:59 DC 05/04/17 19:56 Procedures/MDM Significant dehydration and vomiting status post heavy alcohol use. Mild hyponatremia. No signs of DTs currently. Fatty liver with elevated liver enzymes secondary to alcohol use. Elevation of lipase. Patient has an elevated anion gap of 29.5 signs of dehydration on physical exam. Also diabetic hyperglycemia. Patient was given 2 L of normal saline hydration. Is also given Zofran and Ativan. Was given Librium after nausea medicine but vomited the Librium. Ordered another 100 mg Librium tablets for him. Still has significant nausea. Gave him Reglan as well. Also giving Haldol IM for nausea and pain. Spoke with Dr. Sherman who will be admitting the patient for further hydration and monitoring. EKG interpretation: Normal sinus rhythm rate of 85, normal axis, single PVC, no ST or T-wave changes concerning for acute ischemia, normal intervals. 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 Departure Diagnosis: Primary Impression: Dehydration Additional Impressions: Hyperglycemia due to type 2 diabetes mellitus Increased anion gap metabolic acidosis Alcohol abuse Vomiting Hepatic steatosis Condition: Stable AMY WESTBROOK DO May 04, 2017 15:53
[2017-05-04 16:33] LABS: ADD SCAN DIFF NO
[2017-05-04 16:36] LABS: ABNORMAL IP MESSAGE 1; HEMATOCRIT 41.4 % (42.0-52.0); HEMOGLOBIN 14.6 g/dl (14.0-18.0); MEAN CORPUSCULAR HEMOGLOBIN 30.7 pg (29.0-33.0); MEAN CORPUSCULAR HGB CONC 35.3 g/dl (32.0-37.0); MEAN CORPUSCULAR VOLUME 87.2 fl (82.0-101.0); MEAN PLATELET VOLUME 10.3 fl (7.4-10.4); PLATELET COUNT 82 10^3/UL (140-415); RED BLOOD COUNT 4.75 10^6/ul (4.70-6.10); RED CELL DISTRIBUTION WIDTH 13.2 % (11.5-14.5); WHITE BLOOD COUNT 7.1 10^3/ul (4.8-10.8)
--- NOTE | 2017-05-04 16:37 | RADRPT ---
PROCEDURE: US Abdomen Limited . CLINICAL INDICATION: Abdominal pain TECHNIQUE: Multiple real-time images were acquired of the patient's right upper quadrant abdomen u tilizing a high resolution transducer. COMPARISON: February 22, 2015 FINDINGS: The liver measures 18.5 cm and demonstrates a coarsened echogenicity. The gallbladder is filled with a moderate amount of bile. No shadowing echogenic stones or masses are seen in the gallbladder. T he gallbladder wall is mildly thickened at 3.2 mm. No pericholecystic fluid is noted. The common diego e duct measures 5.1 mm in diameter. The visualized portions of the proximal pancreas are unremarkab le. The tail of the pancreas is not well visualized. Right kidney measures 12.7 cm. Right kidney demonstrates a normal echogenicity. No hydronephrosis, masses or stones are noted. IMPRESSION: Diffuse fatty infiltration of a mildly enlarged liver. Minimally thickened gallbladder wall. Etiology and significance is uncertain. Tail of the pancreas not well visualized. If characterization of this structure is needed repeat exa m or CT/MRI is recommended. RPTAT: AA .David Arthur MD, Date Time Electronically viewed and signed by .David Arthur MD, on 05/04/2017 16:37 .P/
[2017-05-04 16:48] LABS: ADD UMIC YES; UR ASCORBIC ACID NEGATIVE (NEGATIVE); UR BILIRUBIN (Dip) NEGATIVE (NEGATIVE); UR BLOOD (Dip) 1+ mg/dL (NEGATIVE); UR CLARITY CLEAR (CLEAR); UR COLOR YELLOW (YELLOW); UR GLUCOSE (Dip) NEGATIVE (NEGATIVE); UR KETONES (Dip) 2+ mg/dL (NEGATIVE); UR LEUKOCYTE ESTERASE (Dip) NEGATIVE Leu/ul (NEGATIVE); UR NITRITE (Dip) NEGATIVE (NEGATIVE); UR RBC 5 /HPF (0-5); UR SPECIFIC GRAVITY (Dip) 1.024 (1.003-1.030); UR TOTAL PROTEIN (Dip) 2+ mg/dl (NEGATIVE); UR UROBILINOGEN (Dip) 1+ mg/dL (NEGATIVE)
[2017-05-04 16:53] LABS: ALANINE AMINOTRANSFERASE 283 IU/L (13-69); ALBUMIN 4.3 g/dl (3.3-4.9); ALBUMIN/GLOBULIN RATIO 1.38; ALKALINE PHOSPHATASE 79 IU/L (42-121); ANION GAP 33 (8-16); ASPARTATE AMINO TRANSFERASE 500 IU/L (15-46); BILIRUBIN,INDIRECT 0.7 mg/dl (0-1.1); BILIRUBIN,TOTAL 0.7 mg/dl (0.2-1.3); BLOOD UREA NITROGEN 20 mg/dl (7-20); CALCIUM 8.2 mg/dl (8.4-10.2); CARBON DIOXIDE 20 mmol/L (21-31); CHLORIDE 78 mmol/L (97-110); CREATININE 0.98 mg/dl (0.61-1.24); GLUCOSE 303 mg/dl (70-220); POTASSIUM 3.5 mmol/L (3.5-5.1); SODIUM 127 mmol/L (135-144); TOTAL PROTEIN 7.4 g/dl (6.1-8.1)
[2017-05-04 17:06] LABS: TROPONIN-I < 0.012 ng/ml (0.00-0.12)
[2017-05-04 17:27] LABS: LYMPHOCYTES # 1.1 10^3/ul (0.8-2.9); MONOCYTE # 0.1 10^3/ul (0.3-0.9); NEUTROPHIL # 5.7 10^3/ul (1.6-7.5); PLATELET ESTIMATE PLT APPEAR DECREASED
[2017-05-04] MEDS ORDERED: CHLORDIAZEPOXIDE 25 MG CAP PO ONE ×2 (17:30→19:00)
[2017-05-04] MEDS ORDERED: LORAZEPAM 2 MG INJ IV ONE (17:30)
[2017-05-04] MEDS ORDERED: ASPIRIN 81 MG TAB PO ONE (18:00)
[2017-05-04] MEDS ORDERED: NAPR-688 PO (18:14)
[2017-05-04] MEDS ORDERED: ONDA4TAB11 PO (18:14)
[2017-05-04] MEDS ORDERED: CHLO25CA9 PO (18:14)
[2017-05-04] MEDS ORDERED: LIDOCAINE/MYLANTA 40 ML BTL PO ONE (18:30)
[2017-05-04] MEDS ORDERED: SOD CHLORIDE 0.9% 1,000 ML IV ONE (20:00)
[2017-05-04 21:08] VITALS: TEMP 98.4
[2017-05-04] MEDS ORDERED: HALOPERIDOL 5 MG INJ IM ONE (23:00)
[2017-05-04] MEDS ORDERED: METOCLOPRAMIDE 10 MG INJ IV ONE (23:00)
[2017-05-05 02:00] VITALS: PULSE 61
[2017-05-05] MEDS ORDERED: LORAZEPAM 2 MG INJ IV ONE (04:30)
[2017-05-05] MEDS ORDERED: MULTIVITAMINS 10 ML, THIAMINE 100 MG, FOLIC ACID 1 MG in SOD CHLORIDE 0.9% 1,000 ML IVPB SCH ×2 (05:30→09:00)
[2017-05-05] MEDS ORDERED: SOD CHLORIDE 0.9% 1,000 ML IV SCH (06:30)
[2017-05-05] MEDS ORDERED: GLUCAGON 1 MG INJ IM PRN (06:30)
[2017-05-05] MEDS ORDERED: CHLORDIAZEPOXIDE 25 MG CAP PO SCH (06:30)
[2017-05-05] MEDS ORDERED: GLUCOSE GEL 15 GRAM TUBE BUCCAL PRN (06:30)
[2017-05-05] MEDS ORDERED: DEXTROSE 50% 50 ML SYRINGE IV PRN ×2 (06:30)
[2017-05-05] MEDS ORDERED: GLUCOSE GEL 15 GRAM TUBE PO PRN ×2 (06:30)
[2017-05-05 07:46] VITALS: BP 120/77; RESP 19
[2017-05-05] MEDS ORDERED: INSULIN ASPART [NOVOLOG] 3 ML PEN SC SCH (07:50)
[2017-05-05] MEDS ORDERED: METHYLPREDNISOLONE 125 MG INJ IV SCH (09:00)
[2017-05-05] MEDS ORDERED: LORAZEPAM 2 MG INJ IV SCH (09:30)
[2017-05-05 10:37] LABS: ADD SCAN DIFF NO
[2017-05-05 10:42] VITALS: Ht 177.8 cm; Wt 89.9 kg
[2017-05-05 10:43] LABS: ABNORMAL IP MESSAGE 1; BASOPHILS % 0.6 % (0.0-2.0); EOSINOPHILS % 0.1 % (0.0-7.0); HEMATOCRIT 38.7 % (42.0-52.0); HEMOGLOBIN 13.3 g/dl (14.0-18.0); LYMPHOCYTES % 29.3 % (15.0-51.0); MEAN CORPUSCULAR HEMOGLOBIN 30.4 pg (29.0-33.0); MEAN CORPUSCULAR HGB CONC 34.4 g/dl (32.0-37.0); MEAN CORPUSCULAR VOLUME 88.4 fl (82.0-101.0); MONOCYTE # 0.3 10^3/ul (0.3-0.9); MONOCYTES % 4.6 % (0.0-11.0); NEUTROPHIL # 4.4 10^3/ul (1.6-7.5); NEUTROPHILS % 65.1 % (39.0-77.0); RED BLOOD COUNT 4.38 10^6/ul (4.70-6.10); RED CELL DISTRIBUTION WIDTH 13.2 % (11.5-14.5); WHITE BLOOD COUNT 6.7 10^3/ul (4.8-10.8)
[2017-05-05 11:27] LABS: ALBUMIN 3.6 g/dl (3.3-4.9); ALBUMIN/GLOBULIN RATIO 1.2; BILIRUBIN,INDIRECT 0.9 mg/dl (0-1.1); BILIRUBIN,TOTAL 0.9 mg/dl (0.2-1.3); CALCIUM 8.5 mg/dl (8.4-10.2); CREATININE 0.93 mg/dl (0.61-1.24); POTASSIUM 3.3 mmol/L (3.5-5.1); TOTAL PROTEIN 6.6 g/dl (6.1-8.1)
[2017-05-05] MEDS ORDERED: BENAZEPRIL 20 MG TAB PO SCH (12:30)
[2017-05-05 13:07] LABS: PLATELET COUNT 50 10^3/UL (140-415)
[2017-05-05] MEDS ORDERED: LORAZEPAM 2 MG INJ IV PRN (13:30)
--- NOTE | 2017-05-05 14:55 | PN ---
Date/Time of Note Date/Time of Note DATE: 05/05/17 TIME: 14:49 Assessment/Plan VTE Prophylaxis VTE Prophylaxis Intervention: SCD's Lines/Catheters IV Catheter Type (from Nrs): Peripheral IV Urinary Cath still in place: No Assessment/Plan Chief Complaint/Hosp Course Patient is a 47-year-old male who presents with nausea and vomiting and associated chest pain for approximately 1 month. Patient has a history of hypertension. Assessment Abdominal pain, resolving, right upper quadrant Nausea, resolving Fatty liver Elevated AST and ALT Hypokalemia, mild Hypertension Anxiety Chest pain, resolved Plan -GI consulted per night physician, recommendations appreciated -Possible alcoholic hepatitis, mild, GI recommendations appreciated -Clears as tolerated, progress diet as tolerated -Pain control -Restart home medications -As needed Ativan for anxiety Bertin Maloney DO Problems: Subjective 24 Hr Interval Summary Free Text/Dictation asleep in bed, but asking for more ativan nausea has significantly improved Exam/Review of Systems Vital Signs Vitals Vital Signs Date Time Temp Pulse Resp B/P Pulse Ox O2 Delivery O2 Flow Rate FiO2 05/05/17 07:46 98.4 68 19 120/77 95 05/05/17 02:00 Room Air 05/04/17 21:08 2.0 Exam Physical exam General: Patient is laying in bed and answers questions appropriately Mentation: Patient is alert and oriented 4, Head: Normocephalic atraumatic Eyes: EOMI, pupils reactive to light Neck: Supple, nontender, midline Respiratory: Clear to auscultation bilaterally Cardiovascular: regular rate, no obvious murmurs Gastrointestinal: mild RUQ tenderness, bowel sounds heard. Neurological: Moves all extremities spontaneously Skin: No new skin lesions Results Result Diagram: 05/05/17 1009 05/05/17 1009 Results 24 hrs Laboratory Tests Test 05/04/17 15:50 05/04/17 16:15 05/05/17 09:03 05/05/17 10:09 White Blood Count 7.1 # 6.7 Red Blood Count 4.75 4.38 L Hemoglobin 14.6 13.3 L Hematocrit 41.4 L 38.7 L Mean Corpuscular Volume 87.2 88.4 Mean Corpuscular Hemoglobin 30.7 30.4 Mean Corpuscular Hemoglobin Concent 35.3 34.4 Red Cell Distribution Width 13.2 13.2 Platelet Count 82 #L 50 #L Mean Platelet Volume 10.3 11.0 H Neutrophils % 80.0 H 65.1 Band Neutrophils % 3.0 Lymphocytes % 16.0 29.3 Monocytes % 1.0 4.6 Neutrophils # 5.7 4.4 Lymphocytes # 1.1 2.0 Monocytes # 0.1 L 0.3 Platelet Estimate PLT APPEAR DECREASED Sodium Level 127 L 134 L Potassium Level 3.5 3.3 L Chloride Level 78 L 86 L Carbon Dioxide Level 20 L 32 #H Anion Gap 33 H 19 #H Blood Urea Nitrogen 20 16 Creatinine 0.98 0.93 Glucose Level 303 H 85 # Calcium Level 8.2 L 8.5 Total Bilirubin 0.7 0.9 Direct Bilirubin 0.00 0.00 Indirect Bilirubin 0.7 0.9 Aspartate Amino Transf (AST/SGOT) 500 H 343 H Alanine Aminotransferase (ALT/SGPT) 283 H 251 H Alkaline Phosphatase 79 78 Troponin I < 0.012 Total Protein 7.4 6.6 Albumin 4.3 3.6 Globulin 3.10 3.00 Albumin/Globulin Ratio 1.38 1.20 Lipase 318 H Urine Color YELLOW Urine Clarity CLEAR Urine pH 6.0 Urine Specific [place] 1.024 Urine Ketones 2+ H Urine Nitrite NEGATIVE Urine Bilirubin NEGATIVE Urine Urobilinogen 1+ H Urine Leukocyte Esterase NEGATIVE Urine Microscopic RBC 5 Urine Microscopic WBC 0 Urine Hemoglobin 1+ H Urine Glucose NEGATIVE Urine Total Protein 2+ H Bedside Glucose 88 Eosinophils % 0.1 Basophils % 0.6 Nucleated Red Blood Cells % 0.0 Eosinophils # 0.0 Basophils # 0.0 Nucleated Red Blood Cells # 0.0 Medications Medications Current Medications Sodium Chloride (NS) 1,000 ml @ 100 mls/hr Q10H IV ; Start 05/05/17 at 06:30 Pantoprazole (Protonix Iv) 40 mg DAILY@06 IV ; Start 05/06/17 at 06:00 Miscellaneous Information 1 ea NOTE XX ; Start 05/05/17 at 06:30 Glucose (Glutose) 15 gm Q15M PRN PO DECREASED GLUCOSE; Start 05/05/17 at 06:30 Glucose (Glutose) 22.5 gm Q15M PRN PO DECREASED GLUCOSE; Start 05/05/17 at 06: 30 Dextrose (D50w Syringe) 25 ml Q15M PRN IV DECREASED GLUCOSE; Start 05/05/17 at 06:30 Dextrose (D50w Syringe) 50 ml Q15M PRN IV DECREASED GLUCOSE; Start 05/05/17 at 06:30 Glucagon (Glucagen) 1 mg Q15M PRN IM DECREASED GLUCOSE; Start 05/05/17 at 06:30 Glucose (Glutose) 15 gm Q15M PRN BUCCAL DECREASED GLUCOSE; Start 05/05/17 at 06 :30 Methylprednisolone Sodium Succinate (Solu-Medrol) 60 mg Q12 IV Last administered on 05/05/17 09:06; Admin Dose 60 MG; Start 05/05/17 at 09:00 Lorazepam (Ativan) 1 mg Q8H PRN IV anxiety Last administered on 05/05/17 13:29 ; Admin Dose 1 MG; Start 05/05/17 at 13:30 Benazepril HCl (Lotensin) 20 mg DAILY PO Last administered on 05/05/17 13:01; Admin Dose 20 MG; Start 05/05/17 at 12:30 Metoprolol Tartrate (Lopressor) 50 mg BID PO ; Start 05/05/17 at 21:00 BERTIN MALONEY May 05, 2017 14:55
--- NOTE | 2017-05-05 18:52 | DS ---
Date/Time of Note Date/Time of Note DATE: 05/05/17 TIME: 18:49 Discharge Summary Admission/Discharge Info Admit Date/Time May 05, 2017 at 00:54 Discharge Date/Time May 05, 2017 at 15:15 Hospital Course Patient is a 47-year-old male who presents with nausea and vomiting and associated chest pain for approximately 1 month. Patient has a history of hypertension. Assessment Abdominal pain, resolving, right upper quadrant Nausea, resolving Fatty liver Elevated AST and ALT Hypokalemia, mild Hypertension Anxiety Chest pain, resolved Plan -patient did not want to wait to be evaluated by gastroenterology and signed out against medical advice. It was explained to the patient the dangers of leaving against medical advice, patient is alert and oriented x 4. Iesha Ritesh DO Home Meds Active Scripts Naproxen* (Naproxen*) 500 Mg Tablet, 500 MG PO BID Y for PAIN, #14 TAB Prov:AMY WESTBROOK DO 05/04/17 Ondansetron (Zofran Odt) 4 Mg Tab.rapdis, 4 MG PO Q6 for NAUSEA AND/OR VOMITING , #10 Prov:AMY WESTBROOK DO 05/04/17 Chlordiazepoxide* (Chlordiazepoxide*) 25 Mg Capsule, 25 MG PO taper, #13 CAP take 3 tabs Thursday and Thursday, take 2 tabs and thursday take 1 tab for last three days. Prov:DARIANAAMYMARAL ZENG 05/04/17 Pantoprazole* (Protonix*) 40 Mg Tablet.dr, 40 MG PO DAILY, #20 TAB Prov:JEFF WILKINSON MD 06/21/15 Folic Acid* (Folic Acid*) 1 Mg Tablet, 1 MG PO DAILY, #30 TAB Prov:LYNDA CASILLAS MD 06/01/15 Reported Medications Metoprolol Tartrate* (Lopressor*) 50 Mg Tab, 50 MG PO BID, #60 TAB 02/28/17 Benazepril Hcl* (Benazepril Hcl*) 20 Mg Tablet, 20 MG PO DAILY, #30 TAB 02/28/17 Multivitamins* (Once Daily*) 1 Tab Tablet, 1 TAB PO DAILY, TAB 08/27/15 Ferrous Sulfate (Iron) 325 Mg Capsr, 325 MG PO DAILY 05/14/15 Primary Care Provider Oganes Paronian Pending Labs Laboratory Tests Test 05/05/17 09:03 05/05/17 10:09 Bedside Glucose 88mg/dL (70-220) White Blood Count 6.710^3/ul (4.8-10.8) Red Blood Count 4.3810^6/ul (4.70-6.10) Hemoglobin 13.3g/dl (14.0-18.0) Hematocrit 38.7% (42.0-52.0) Mean Corpuscular Volume 88.4fl (82.0-101.0) Mean Corpuscular Hemoglobin 30.4pg (29.0-33.0) Mean Corpuscular Hemoglobin Concent 34.4g/dl (32.0-37.0) Red Cell Distribution Width 13.2% (11.5-14.5) Platelet Count 5010^3/UL (140-415) Mean Platelet Volume 11.0fl (7.4-10.4) Neutrophils % 65.1% (39.0-77.0) Lymphocytes % 29.3% (15.0-51.0) Monocytes % 4.6% (0.0-11.0) Eosinophils % 0.1% (0.0-7.0) Basophils % 0.6% (0.0-2.0) Nucleated Red Blood Cells % 0.0/100WBC (0.0-0.0) Neutrophils # 4.410^3/ul (1.6-7.5) Lymphocytes # 2.010^3/ul (0.8-2.9) Monocytes # 0.310^3/ul (0.3-0.9) Eosinophils # 0.010^3/ul (0.0-0.5) Basophils # 0.010^3/ul (0.0-0.1) Nucleated Red Blood Cells # 0.010^3/ul (0.0-0.0) Sodium Level 134mmol/L (135-144) Potassium Level 3.3mmol/L (3.5-5.1) Chloride Level 86mmol/L (97-110) Carbon Dioxide Level 32mmol/L (21-31) Anion Gap 19 (8-16) Blood Urea Nitrogen 16mg/dl (7-20) Creatinine 0.93mg/dl (0.61-1.24) Glucose Level 85mg/dl (70-220) Calcium Level 8.5mg/dl (8.4-10.2) Total Bilirubin 0.9mg/dl (0.2-1.3) Direct Bilirubin 0.00mg/dl (0.00-0.20) Indirect Bilirubin 0.9mg/dl (0-1.1) Aspartate Amino Transf (AST/SGOT) 343IU/L (15-46) Alanine Aminotransferase (ALT/SGPT) 251IU/L (13-69) Alkaline Phosphatase 78IU/L (42-121) Total Protein 6.6g/dl (6.1-8.1) Albumin 3.6g/dl (3.3-4.9) Globulin 3.00g/dl (1.3-3.2) Albumin/Globulin Ratio 1.20 IESHA MALONEY May 05, 2017 18:52
[2017-05-05] MEDS ORDERED: METOPROLOL 50 MG TAB PO SCH (21:00)
[2017-05-06] MEDS ORDERED: ACCU-CHEK XX SCH ×2 (02:00)
[2017-05-06] MEDS ORDERED: PANTOPRAZOLE 40 MG INJ IV SCH (06:00)
--- NOTE | 2017-05-06 08:25 | HP ---
DATE OF ADMISSION: 05/05/2017 CHIEF COMPLAINT: Abdominal pain, nausea, and vomiting. HISTORY OF PRESENT ILLNESS: The patient is a 47-year-old male with a history of hypertension, history of chronic gastritis, anxiety, GERD, lumbar spinal stenosis, and alcohol abuse, who presented to the emergency department complaining of abdominal pain, nausea, vomiting, and chest pain. He said he has been on vacation outside the country and has been drinking heavily. So when he came back, he continued to drink, his last drink being yesterday. His pain has been going on for the last 3 days, and mainly it is localized in the right upper quadrant area with a burning-type sensation in his chest and also nausea and nonbloody, nonbilious emesis. Patient has been admitted here previously, his last admission being 2 months ago when he came with an anxiety attack and alcohol intoxication, as well as chest pain. At that time, it is noted that he did have some ST depression on the EKG, but previously he had been worked up for coronary artery disease, and his echo previously also showed an EF of 65 percent. During the hospitalization, he had 3 negative troponins as well. When patient presented to the ER an EKG was done that shows normal sinus rhythm with a rate of 85 with a single PVC with no ST-T-wave abnormalities. Laboratory values show a glucose of 303, sodium 127, chloride 78, bicarb 20. Anion gap was 33. AST 500, ALT 283. While patient was in the ER, he was given Ativan, aspirin, Zofran, and librium, as well as Haldol, but reportedly he did vomit, and it seems like the librium did not stay with him. While the patient was in the ER, a right upper quadrant ultrasound was done, and it showed diffuse fatty infiltration of mildly enlarged liver and minimally thickened gallbladder wall with uncertain etiology and significance. REVIEW OF SYSTEMS: A 12-point review was performed and negative except as noted in the HPI. PAST MEDICAL HISTORY: As per HPI. SOCIAL HISTORY: Alcohol abuse. ALLERGIES: NO KNOWN DRUG ALLERGIES. HOME MEDICATIONS: 1. Ferrous sulphate. 2. Benazepril. 3. Lopressor. 4. Librium. 5. Naproxen. 6. Zofran. 7. Protonix. 8. Folic acid. 9. Multivitamin. PHYSICAL EXAMINATION: VITALS: Stable. GENERAL: The patient looks somewhat uncomfortable and was not fully oriented. He is also at times sleepy. HEENT: No obvious deformity. intact. CARDIOVASCULAR: Regular rate and rhythm with extra sound. LUNGS: Clear. ABDOMEN: Soft. There is tenderness in the right upper quadrant area with no guarding, no rigidity. EXTREMITIES: No edema. LABORATORY: Pertinent positives as above in HPI. IMAGING: Right upper quadrant ultrasound, results as mentioned in HPI. IMPRESSION: 1. Alcoholic hepatitis. 2. Alcohol intoxication. 3. Abdominal pain, secondary to number 1. 4. Chest pain, most likely secondary to gastroesophageal disease. 5. Hyponatremia. 6. Anion gap metabolic acidosis, secondary to alcohol. 7. Mild pancreatitis with lipase of 318. 8. History of hypertension. 9. History of anxiety. PLAN: He will be kept npo. I will start him on a banana bag alternating with normal saline IV fluid. He will be given Ativan. He will be medicated with antiemetics and also will be given librium around the clock. Will place a GI consult given significantly elevated transaminases. Will monitor his liver function closely. I will start him on a steroid. It just seems obvious for now that his liver issues are secondary to alcohol but will do additional workup if needed, including checking for hepatitis. I will be monitoring him throughout his clinical course. Dictated By: Vish Jack MD /[email or web address]/[email or web address] /Document#: [id number]
== END 2017-05-05 15:15 | disposition left against medical advice (07) | DRG 392 ==
LOC: FTE 12:55 → MS1 05-05 00:54
PROVIDERS: ADMIT Internal Medicine; ATTEND Internal Medicine
DX: R10.11 Right upper quadrant pain (principal); K76.0 Fatty (change of) liver, not elsewhere classified; I10 Essential (primary) hypertension; E87.6 Hypokalemia; R74.0 Nonspecific elevation of levels of transaminase and lactic acid dehydrogenase [LDH]; F41.9 Anxiety disorder, unspecified; R07.9 Chest pain, unspecified
CPT/HCPCS: 36415; 76705; 80053; 81001; 82962; 83690; 84484; 85025; 93005; 96372; 96374; 96375; 96376; J1630; J1815; J2060; J2270; J2405; J2765; J2930; J3411; J7030

== ENCOUNTER 2017-09-01 16:22 | Inpatient (IN) | payer BC ==
[~2017-09-01] VITALS: Ht 177.8 cm; Wt 90.0 kg
[~2017-09-01 16:22] MED LIST changes: +CHLO25CA9 PO; +NAPR-688 PO; +ONDA4TAB11 PO
[2017-09-01] MEDS ORDERED: SOD CHLORIDE 0.9% 1,000 ML IV STA (18:52)
[2017-09-01] MEDS ORDERED: LORAZEPAM 2 MG INJ IV STA (18:52)
[2017-09-01 19:16] LABS: BASOPHIL # 0.1 10^3/ul (0.0-0.1); BASOPHILS % 0.7 % (0.0-2.0); EOSINOPHILS % 0.2 % (0.0-7.0); HEMATOCRIT 45.1 % (42.0-52.0); HEMOGLOBIN 15.7 g/dl (14.0-18.0); LYMPHOCYTES # 2.6 10^3/ul (0.8-2.9); LYMPHOCYTES % 29.4 % (15.0-51.0); MEAN CORPUSCULAR HEMOGLOBIN 31.2 pg (29.0-33.0); MEAN CORPUSCULAR HGB CONC 34.8 g/dl (32.0-37.0); MEAN CORPUSCULAR VOLUME 89.7 fl (82.0-101.0); MEAN PLATELET VOLUME 9.2 fl (7.4-10.4); MONOCYTE # 0.3 10^3/ul (0.3-0.9); MONOCYTES % 3.4 % (0.0-11.0); NEUTROPHIL # 5.9 10^3/ul (1.6-7.5); NEUTROPHILS % 66.1 % (39.0-77.0); PLATELET COUNT 250 10^3/UL (140-415); RED BLOOD COUNT 5.03 10^6/ul (4.70-6.10); RED CELL DISTRIBUTION WIDTH 13.2 % (11.5-14.5); WHITE BLOOD COUNT 8.9 10^3/ul (4.8-10.8)
[2017-09-01 19:26] LABS: ADD UMIC YES; UR ASCORBIC ACID NEGATIVE (NEGATIVE); UR BACTERIA FEW /HPF (NONE SEEN); UR BILIRUBIN (Dip) NEGATIVE (NEGATIVE); UR BLOOD (Dip) 1+ mg/dL (NEGATIVE); UR CLARITY CLEAR (CLEAR); UR COLOR YELLOW (YELLOW); UR GLUCOSE (Dip) NEGATIVE (NEGATIVE); UR KETONES (Dip) TRACE mg/dL (NEGATIVE); UR LEUKOCYTE ESTERASE (Dip) NEGATIVE Leu/ul (NEGATIVE); UR MUCUS FEW /HPF (NONE SEEN); UR NITRITE (Dip) NEGATIVE (NEGATIVE); UR RBC 1 /HPF (0-5); UR SPECIFIC GRAVITY (Dip) 1.017 (1.003-1.030); UR TOTAL PROTEIN (Dip) 2+ mg/dl (NEGATIVE); UR UROBILINOGEN (Dip) NEGATIVE (NEGATIVE)
[2017-09-01 19:45] LABS: ALBUMIN 4.7 g/dl (3.3-4.9); ALBUMIN/GLOBULIN RATIO 1.42; BILIRUBIN,INDIRECT 0.3 mg/dl (0-1.1); BILIRUBIN,TOTAL 0.3 mg/dl (0.2-1.3); CALCIUM 9.3 mg/dl (8.4-10.2); CREATININE 1.14 mg/dl (0.61-1.24); POTASSIUM 3.9 mmol/L (3.5-5.1)
[2017-09-01 19:46] LABS: BARBITURATES Negative (NEGATIVE); BENZODIAZEPINES Positive (NEGATIVE); CANNABINOIDS Negative (NEGATIVE); COCAINE Negative (NEGATIVE); OPIATES Negative (NEGATIVE)
[2017-09-01] MEDS ORDERED: CHLORDIAZEPOXIDE 25 MG CAP PO ONE (20:30)
[2017-09-01] MEDS ORDERED: LORAZEPAM 2 MG INJ IV ONE (22:00)
[2017-09-01] MEDS ORDERED: SOD CHLORIDE 0.9% 1,000 ML IV SCH (22:04)
[2017-09-01] MEDS: CHLORDIAZEPOXIDE 25 MG CAP PO SCH (22:30)
[2017-09-01] MEDS ORDERED: ONDANSETRON 4 MG INJ IV PRN ×2 (22:30)
[2017-09-01] MEDS ORDERED: ACETAMINOPHEN 325 MG TAB PO PRN ×2 (22:30)
[2017-09-01] MEDS ORDERED: NACL 0.9% 3 ML SYG IV SCH (22:30)
--- NOTE | 2017-09-01 22:35 | RADRPT ---
PROCEDURE: Portable chest x-ray. CLINICAL INDICATION: 47 years of age, male. Shortness of breath. TECHNIQUE: Portable AP view of the chest. COMPARISON: February 28, 2017 FINDINGS: Cardiomediastinal contours are normal. Lungs are clear. Negative for pleural effusion or pneumothorax. No acute bony abnormality. Additional comment: None. IMPRESSION: Negative for evidence of an acute chest process. RPTAT: HCTS Physician Oskar Date Time Electronically viewed and signed by Phil Maldonado Physician on 09/01/2017 22:35 CS/
--- NOTE | 2017-09-01 23:27 | ERD ---
ER Documentation Chief Complaint Chief Complaint ETOH WITH DIZZINESS,N/V/AP, RECENT HOSPITALIZATION MALCOM LE SAME ISSUE HPI 47-year-old male with a history of alcoholism presenting to the ER complaining of palpitations and anxiety. He states he is having a panic attack. He has been binge drinking for the past week after being sober prior to that. He also complains of bright red blood per rectum with bowel movements which are intermittent. He denies any associated abdominal pain other than right upper quadrant pain. No nausea, vomiting, hematemesis, fever, chills, chest pain, shortness of breath. ROS All systems reviewed and are negative except as per history of present illness. Medications Home Meds Active Scripts Naproxen* (Naproxen*) 500 Mg Tablet, 500 MG PO BID Y for PAIN, #14 TAB Prov:AMY WESTBROOK DO 05/04/17 Ondansetron (Zofran Odt) 4 Mg Tab.rapdis, 4 MG PO Q6 for NAUSEA AND/OR VOMITING , #10 Prov:AMY WETSBROOK DO 05/04/17 Chlordiazepoxide* (Chlordiazepoxide*) 25 Mg Capsule, 25 MG PO taper, #13 CAP take 3 tabs Thursday and Thursday, take 2 tabs and thursday take 1 tab for last three days. Prov:AMY WESTBROOK DO 05/04/17 Pantoprazole* (Protonix*) 40 Mg Tablet.dr, 40 MG PO DAILY, #20 TAB Prov:JEFF WILKINSON MD 06/21/15 Folic Acid* (Folic Acid*) 1 Mg Tablet, 1 MG PO DAILY, #30 TAB Prov:LYNDA CASILLAS MD 06/01/15 Reported Medications Metoprolol Tartrate* (Lopressor*) 50 Mg Tab, 50 MG PO BID, #60 TAB 02/28/17 Benazepril Hcl* (Benazepril Hcl*) 20 Mg Tablet, 20 MG PO DAILY, #30 TAB 02/28/17 Multivitamins* (Once Daily*) 1 Tab Tablet, 1 TAB PO DAILY, TAB 08/27/15 Ferrous Sulfate (Iron) 325 Mg Capsr, 325 MG PO DAILY 05/14/15 Allergies Allergies: Coded Allergies: No Known Allergies (Unverified Allergy, Unknown, 09/01/17) PMhx/Soc Medical and Surgical Hx: pt denies Surgical Hx History of Surgery: No Anesthesia Reaction: No Hx Neurological Disorder: No Hx Respiratory Disorders: No Hx Cardiac Disorders: Yes (HTN) Hx Psychiatric Problems: Yes (ANXIETY) Hx Miscellaneous Medical Probl: No Hx Alcohol Use: Yes Hx Substance Use: No Hx Tobacco Use: Yes Smoking Status: Never smoker FmHx Family History: No diabetes Physical Exam Vitals Vital Signs Date Time Temp Pulse Resp B/P Pulse Ox O2 Delivery O2 Flow Rate FiO2 09/01/17 23:09 110 18 150/87 98 Room Air 09/01/17 19:05 Nasal Cannula 2 09/01/17 19:04 99.0 117 19 122/75 98 Nasal Cannula 2.0 09/01/17 16:42 99.0 130 22 125/77 97 Physical Exam Const: Appears anxious, nontoxic, somewhat tremulous Head: Atraumatic Eyes: Normal Conjunctiva, no scleral icterus, PERRLA, EOMI ENT: Dry mucous membranes. Neck: Full range of motion..~ No meningismus. Resp: Clear to auscultation bilaterally Cardio: Tachycardic with regular rhythm, no murmurs Abd: Soft, mild right upper quadrant tenderness to palpation, otherwise nontender and non distended. No hepatomegaly. Normal bowel sounds Skin: No petechiae or rashes Back: No midline or flank tenderness Ext: No cyanosis, or edema Neur: Awake and alert, oriented 3, cranial nerves intact, strength and sensations intact in all 4 extremities, normal gait Psych: Anxious Result Diagram: 09/01/17189909/01/171899 Results 24 hrs Laboratory Tests Test 09/01/17 19:00 White Blood Count 8.910^3/ul Red Blood Count 5.0310^6/ul Hemoglobin 15.7g/dl Hematocrit 45.1% Mean Corpuscular Volume 89.7fl Mean Corpuscular Hemoglobin 31.2pg Mean Corpuscular Hemoglobin Concent 34.8g/dl Red Cell Distribution Width 13.2% Platelet Count 32551^3/UL Mean Platelet Volume 9.2fl Neutrophils % 66.1% Lymphocytes % 29.4% Monocytes % 3.4% Eosinophils % 0.2% Basophils % 0.7% Nucleated Red Blood Cells % 0.0/100WBC Neutrophils # 5.910^3/ul Lymphocytes # 2.610^3/ul Monocytes # 0.310^3/ul Eosinophils # 0.010^3/ul Basophils # 0.110^3/ul Nucleated Red Blood Cells # 0.010^3/ul Urine Color YELLOW Urine Clarity CLEAR Urine pH 5.0 Urine Specific [place] 1.017 Urine Ketones TRACEmg/dL Urine Nitrite NEGATIVEmg/dL Urine Bilirubin NEGATIVEmg/dL Urine Urobilinogen NEGATIVEmg/dL Urine Leukocyte Esterase NEGATIVELeu/ul Urine Microscopic RBC 1/HPF Urine Microscopic WBC 3/HPF Urine Bacteria FEW/HPF Urine Mucus FEW/HPF Urine Hemoglobin 1+mg/dL Urine Glucose NEGATIVEmg/dL Urine Total Protein 2+mg/dl Sodium Level 140mmol/L Potassium Level 3.9mmol/L Chloride Level 93mmol/L Carbon Dioxide Level 24mmol/L Anion Gap 27 Blood Urea Nitrogen 25mg/dl Creatinine 1.14mg/dl Glucose Level 180mg/dl Calcium Level 9.3mg/dl Total Bilirubin 0.3mg/dl Direct Bilirubin 0.00mg/dl Indirect Bilirubin 0.3mg/dl Aspartate Amino Transf (AST/SGOT) 145IU/L Alanine Aminotransferase (ALT/SGPT) 153IU/L Alkaline Phosphatase 68IU/L Total Protein 8.0g/dl Albumin 4.7g/dl Globulin 3.30g/dl Albumin/Globulin Ratio 1.42 Lipase 268U/L Vitamin B12 Level 397pg/ml Folate 14.8ng/ml Urine Opiates Screen Negative Urine Barbiturates Negative Urine Amphetamines Screen Negative Urine Benzodiazepines Screen Positive Urine Cocaine Screen Negative Urine Cannabinoids Negative Ethyl Alcohol Level 241.0mg/dl Current Medications Medications (Trade) Dose Ordered Sig/Jewel Route PRN Reason Start Time Stop Time Status Last Admin Dose Admin Sodium Chloride (NS) 1,000 ml @ 1,000 mls/hr Q1H STAT IV 09/01/17 18:52 09/01/17 19:51 DC 09/01/17 19:03 Lorazepam (Ativan) 1 mg ONCE STAT IV 09/01/17 18:52 09/01/17 18:54 DC 09/01/17 19:03 Chlordiazepoxide (Librium) 50 mg ONCE ONCE PO 09/01/17 20:30 09/01/17 20:31 DC 09/01/17 20:36 Lorazepam (Ativan) 2 mg ONCE ONCE IV 09/01/17 22:00 09/01/17 22:01 DC 09/01/17 22:14 Ondansetron HCl (Zofran Inj) 4 mg ER BRIDGE PRN IV NAUSEA AND/OR VOMITING 09/01/17 22:30 09/02/17 22:29 Acetaminophen 650 mg 650 mg ER BRIDGE PRN PO MILD PAIN/FEVER 09/01/17 22:30 09/02/17 22:29 Sodium Chloride (NS) 1,000 ml @ 80 mls/hr [id number] IV 09/01/17 22:04 IV Flush (NS 3 ml) 3 ml PER PROTOCOL IV 09/01/17 22:30 Lorazepam (Ativan) 1 mg Q2H PRN IV ANXIETY 09/01/17 22:30 Ondansetron HCl (Zofran Inj) 4 mg Q6H PRN IV NAUSEA AND/OR VOMITING 09/01/17 22:30 Acetaminophen (Tylenol Tab) 650 mg Q6H PRN PO PAIN LEVEL 1-3 OR FEVER 09/01/17 22:30 Pantoprazole (Protonix Iv) 40 mg DAILY@06 IV 09/02/17 06:00 Chlordiazepoxide (Librium) 50 mg TID PO 09/01/17 22:30 09/02/17 22:29 Chlordiazepoxide (Librium) 25 mg QID PO 09/02/17 22:00 09/03/17 21:59 Chlordiazepoxide 25 mg 25 mg TID PO 09/03/17 22:00 09/04/17 21:59 Multivitamins/ Thiamine HCl/ Folic Acid/Sodium Chloride (Mvi Adult/ Vitamin B1/Folic Acid/NS) 1,011.2 ml @ 125 mls/ hr DAILY@09 IVPB 09/02/17 09:00 UNV Benazepril HCl (Lotensin) 20 mg DAILY PO 09/02/17 09:00 UNV Folic Acid (Folic Acid) 1 mg DAILY PO 09/02/17 09:00 UNV Metoprolol Tartrate (Lopressor) 50 mg BID PO 09/02/17 09:00 Multivitamins Therapeutic (Theragran) 1 tab DAILY PO 09/02/17 09:00 UNV Miscellaneous Information 325 mg DAILY PO 09/02/17 09:00 UNV Procedures/MDM EMERGENT LABS AND DIAGNOSTIC STUDIES: Lab Results above were reviewed and interpreted by me. CBC: no anemia or evidence of infection CMP: No evidence of electrolyte abnormality, renal failure, hypoglycemia. Elevated BUN. Transaminitis Lipase: no evidence of pancreatitis UA: no evidence of infection 12-lead EKG was interpreted by Marleen Lopez MD: Sinus tachycardia at 104 bpm Normal axis Normal intervals No acute ST or T wave changes suggestive of acute ischemia or STEMI. Radiology Results as interpreted by Radiology below were reviewed by Denise Lopez MD: Chest Xray: IMPRESSION: Negative for evidence of an acute chest process. Phil Maldonado Physician Date Time Electronically viewed and signed by Phil Maldonado Physician on 09/01/2017 22: 35 Initial Nursing notes reviewed. Previous Medical Records requested via the Electronic Health Record. EMERGENCY DEPARTMENT COURSE / MEDICAL DECISION MAKING: Patient's symptoms are likely secondary to alcohol withdrawal. Vitals were notable for tachycardia, likely due to dehydration in addition to withdrawal. IV fluids were started. He required multiple doses of IV Ativan. Transaminitis is likely due to alcoholic hepatitis. No evidence of delirium tremens. Patient is not stable for discharge at this time as he has tried outpatient Librium without relief of symptoms. He will also need to be monitored for his reported GI bleed, which is unlikely upper in origin given length of symptoms and normal hemoglobin. Admitting MD: Camron Massey Departure Diagnosis: Primary Impression: ETOH abuse Additional Impressions: GI bleed GI bleed type/associated pathology: unspecified gastrointestinal hemorrhage type Qualified Code: K92.2 - Gastrointestinal hemorrhage, unspecified gastrointestinal hemorrhage type Alcohol withdrawal Complication of substance-induced condition: uncomplicated Qualified Code: F10.230 - Alcohol withdrawal syndrome without complication Alcohol abuse Alcoholic hepatitis Ascites presence: without ascites Qualified Code: K70.10 - Alcoholic hepatitis without ascites Condition: DEBBIE Pires MD Sep 01, 2017 23:27
[2017-09-02] VITALS (9 sets, daily range): BP systolic 102–136; BP diastolic 59–88; PULSE 70–92; RESP 18–20; TEMP 98.6; Ht 177.8 cm; Wt 90.0 kg
[2017-09-02 00:38] LABS: FOLATE 14.8 ng/ml (2.8-20.0)
[2017-09-02] MEDS: LORAZEPAM 2 MG INJ IV PRN ×2 (03:35→09:50)
[2017-09-02] MEDS ORDERED: PANTOPRAZOLE 40 MG INJ IV SCH (06:00)
[2017-09-02 06:15] LABS: HEMATOCRIT 37.5 % (42.0-52.0); HEMOGLOBIN 13.2 g/dl (14.0-18.0)
[2017-09-02 06:54] LABS: ALBUMIN 3.9 g/dl (3.3-4.9); ALBUMIN/GLOBULIN RATIO 1.39; BILIRUBIN,INDIRECT 0.9 mg/dl (0-1.1); BILIRUBIN,TOTAL 0.9 mg/dl (0.2-1.3); CALCIUM 8.7 mg/dl (8.4-10.2); CHOL/HDL RATIO 4.1 RATIO; CREATININE 0.82 mg/dl (0.61-1.24); MAGNESIUM 1.4 mg/dl (1.7-2.5); POTASSIUM 3.4 mmol/L (3.5-5.1); TOTAL PROTEIN 6.7 g/dl (6.1-8.1)
[2017-09-02 07:18] LABS: THYROID STIMULATING HORMONE 2.05 MIU/L (0.465-4.680)
[2017-09-02] MEDS ORDERED: PEG/ELECTROLYTES 4L BTL PO SCH (08:00)
[2017-09-02] MEDS ORDERED: PEG/ELECTROLYTES 4L BTL PO ONE (08:00)
--- NOTE | 2017-09-02 08:15 | HP ---
Date/Time of Note Date/Time of Note DATE: 09/02/17 TIME: 08:08 Assessment/Plan VTE Prophylaxis VTE Prophylaxis Intervention: SCD's Assessment/Plan Chief Complaint/Hosp Course This is a 47-year-old male being admitted to the telemetry floor for: #1 alcohol withdrawal: Patient initially presented to the ED and was very anxious and felt like he was having a panic attack. He was given Ativan in the ED. At the current time patient is stable though he does appear slightly anxious. He is conversing appropriately. He is not actively hallucinating. At the current time we will continue with Ativan as needed. Will also put him on a Librium taper. Banana bag daily. Social work consult for alcohol cessation/rehabilitation. Will check B12 and folate level. #2 bright red blood per rectum: At the current time patient's hemoglobin is 15. He states that he notices off and on blood in his stool mostly streaking in nature. Will check H&H every 6 hours. Protonix IV. Keep the patient n.p.o. IV fluid hydration. Will consult GI. #3 hypertension: We will continue to monitor BP and resume patient home medications. #4Transaminitis: likely secondary to alcohol abuse. Will need to order a live ultrasound and obtain heptatitis panel. #5 DVT GI prophylaxis: SCDs, Protonix Further treatment strategy will be implemented as per the clinical course Problems: HPI/ROS Admit Date/Time Admit Date/Time Sep 01, 2017 at 22:09 Hx of Present Illness Chief complaint: Palpitations and anxiety, bright red blood per rectum This is a 47-year-old male with a history of alcoholism presenting to the ER complaining of palpitations and anxiety. He states he is having a panic attack. He has been binge drinking for the past week after being sober prior to that. He also complains of bright red blood per rectum with bowel movements which are intermittent. He denies any associated abdominal pain other than right upper quadrant pain. No nausea, vomiting, hematemesis, fever, chills, chest pain, shortness of breath. Patient states that he has been dealing with alcoholism for quite some time. He denies any social issues for his drinking, he states that he drinks because he likes it. He does report that he wants to quit and that he has gone to rehab but he has relapsed. He also reports that he smokes 1 pack per day 30 years. He currently lives at home with his and children. Allergies: NKDA Medications: See DEC ROS Const: As per HPI Eyes : No pain discharge or redness or change in visual acuity ENT: No pain, sore throat, congestion, congestion, dysphagia or discharge Respiratory: No shortness of breath, cough, sputum, wheezing, or pleuritic pain Cardiovascular: No chest pain, palpitation, PND, or edema GI : As per HPI Genitourinary: No dysuria, hematuria, flank pain , discharge or CVA tenderness Musculoskeletal: No joint pain, back pain, neck pain, restricted range of motion in neck or joints Skin: No rash, bruising or hives Neuro: No headache, dizziness, syncope, seizure, focal weakness Endocrine: No polyuria, polydipsia, temperature intolerance Psych: No hallucination, depression, anxiety or suicidal ideation PMH/Family/Social Past Medical History Alcoholism, hypertension Past Surgical History Past Surgical Hx: no surgical history Family History Significant Family History: hypertension (Mom) Social History Alcohol Use: heavy Smoking Status: Current every day smoker (1 pack per day 30 years) Drug Use: none Exam/Review of Systems Vital Signs Vitals Vital Signs Date Time Temp Pulse Resp B/P Pulse Ox O2 Delivery O2 Flow Rate FiO2 09/02/17 08:06 82 09/02/17 03:15 18 128/75 100 Room Air 09/02/17 02:22 98.6 09/01/17 19:05 2 Exam Exam General: he is lying in bed in no acute distress, he is mildly anxious HEENT: Atraumatic, normocephalic. The pupils are equal, round and reactive. Extraocular motor are intact Neck: Supple with full range of motion. No rigidity or meningismus Chest: Nontender Lungs: Clear to auscultation bilaterally no crackles rales or wheezing Heart: Normal S1-S2, Regular rhythm and rate. Abdomen: Soft , nontender, nondistended , bowel sounds are present. No guarding no rebound tenderness , No masses or organomegaly. No costovertebral temporal angle mass Extremities: Normal to inspection, no edema no cyanosis Neurologic: Normal mental status, speech normal, cranial nerves II through XII are intact, motor and sensory are intact, no focal weakness, Rectal exam: Deferred Psych: No active hallucinations at this time, no suicidal or homicidal ideation. Additional Comments PROCEDURE: Portable chest x-ray. CLINICAL INDICATION: 47 years of age, male. Shortness of breath. TECHNIQUE: Portable AP view of the chest. COMPARISON: February 28, 2017 FINDINGS: Cardiomediastinal contours are normal. Lungs are clear. Negative for pleural effusion or pneumothorax. No acute bony abnormality. Additional comment: None. IMPRESSION: Negative for evidence of an acute chest process. RPTAT: HCTS Physician Oskar Date Time Electronically viewed and signed by Phil Maldonado Physician on 09/01/2017 22: 35 CS/ 12-lead EKG: Sinus tachycardia at 104 bpm Normal axis Normal intervals No acute ST or T wave changes suggestive of acute ischemia or STEMI. As per ED physician documentation Labs Result Diagram: 09/02/1752 09/02/17551 Medications Medications Current Medications Sodium Chloride (NS) 1,000 ml @ 80 mls/hr [id number] IV Last administered on 05:00; Admin Dose 80 MLS/HR; Start 09/01/17 at 22:04 Lorazepam (Ativan) 1 mg Q2H PRN IV ANXIETY Last administered on 09/02/17 03: 35; Admin Dose 1 MG; Start 09/01/17 at 22:30 Ondansetron HCl (Zofran Inj) 4 mg Q6H PRN IV NAUSEA AND/OR VOMITING; Start at 22:30 Acetaminophen (Tylenol Tab) 650 mg Q6H PRN PO PAIN LEVEL 1-3 OR FEVER; Start 09/01/17 at 22:30 Pantoprazole (Protonix Iv) 40 mg DAILY@06 IV Last administered on 09/02/17 05 :27; Admin Dose 40 MG; Start 09/02/17 at 06:00 Chlordiazepoxide (Librium) 50 mg TID PO ; Start 09/01/17 at 22:30; Stop at 22:29 Chlordiazepoxide (Librium) 25 mg QID PO ; Start 09/02/17 at 22:00; Stop at 21:59 Chlordiazepoxide 25 mg 25 mg TID PO ; Start 09/03/17 at 22:00; Stop 09/04/17 at 21:59 Multivitamins/ Thiamine HCl/ Sodium Chloride (Mvi Adult/ Vitamin B1/NS) 1,011 ml @ 125 mls/hr DAILY@09 IVPB ; Start 09/02/17 at 09:00 Benazepril HCl (Lotensin) 20 mg DAILY PO ; Start 09/02/17 at 09:00 Folic Acid (Folic Acid) 1 mg DAILY PO ; Start 09/02/17 at 09:00 Metoprolol Tartrate (Lopressor) 50 mg BID PO ; Start 09/02/17 at 09:00 Multivitamins Therapeutic (Theragran) 1 tab DAILY PO ; Start 09/02/17 at 09:00 Ferrous Sulfate (Ferrous Sulfate (Ec)) 325 mg DAILY PO ; Start 09/02/17 at 09: 00 MINNA LOPEZ Sep 02, 2017 08:15
[2017-09-02] MEDS ORDERED: FERROUS SULFATE (EC) 325 MG TAB PO SCH (09:00)
[2017-09-02] MEDS ORDERED: MULTIVITAMINS 10 ML, THIAMINE 100 MG in SOD CHLORIDE 0.9% 1,000 ML IVPB SCH (09:00)
[2017-09-02] MEDS ORDERED: METOPROLOL 50 MG TAB PO SCH (09:00)
[2017-09-02] MEDS ORDERED: FOLIC ACID 1 MG TAB PO SCH (09:00)
[2017-09-02] MEDS ORDERED: MULTIVITAMINS THERAPEUTIC TAB PO SCH (09:00)
[2017-09-02] MEDS ORDERED: BENAZEPRIL 20 MG TAB PO SCH (09:00)
--- NOTE | 2017-09-02 09:05 | CONS ---
DATE OF ADMISSION: 09/01/2017 DATE OF CONSULTATION: TYPE OF CONSULTATION: Gastroenterology. Dear Dr. Massey: Thank you for asking me to see Mr. Arellano in GI consultation. HISTORY OF PRESENT ILLNESS: The patient, as you know, is a 47-year-old [place] gentleman who is ad mitted to the hospital because of what appears like alcohol withdrawal and tension, palpitatio n, nervousness, had been drinking alcohol until yesterday. However, from the GI standpoint, also he has been drinking, also has been passing blood from the rectum for the past 1 week at least 1 to 2 to 3 times a day dark red in color. No history of hematemesis. He does have some nonspecific abdom inal pain in the upper abdomen. The patient had a colonoscopy many years ago which was apparently u nremarkable. There was some question of Crohn's disease in the past. REVIEW OF SYSTEM: Totally unremarkable. MEDICATIONS: Prior to this admission includes none except he was takin. Ferrous sulfate. 2. Benazepril. 3. Chlordiazepoxide 4. Naproxen. 5. Protonix. 6. Folic acid. 7. Multivitamins. PAST SURGICAL HISTORY: Includes no surgery. SOCIAL HISTORY: He drinks alcohol. He used to be sober until several weeks ago he started drinking again. 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 FAMILY HISTORY: Unremarkable. PHYSICAL EXAMINATION: GENERAL: The patient is a 47-year-old [place] gentleman who at this time is alert, well built. VITAL SIGNS: He is afebrile, pulse is 78, blood pressure 128/75. CARDIOVASCULAR: Normal heart sounds. RESPIRATORY: Normal breath sounds. ABDOMEN: Showed unremarkable findings. RECTAL: Patient would not let me touch it because he says it is painful. LABORATORY WORKUP: Hemoglobin was 15.7 yesterday, today is 13.2, WBC 8900, platelet count 250,000. The chemistry shows bilirubin of 0.9, AST 103, ALT 125, alkaline phosphatase 60, lipase is 268. The chest x-ray shows no acute process. CLINICAL IMPRESSION: He has history of rectal bleeding which apparently has been going on for the p ast 1 week. Most likely the bleeding is coming from the hemorrhoids. Certainly there was some tala te history of Crohn's disease, but I do not believe it is Crohn disease, but certainly this needs to be evaluated and he also has a history of alcoholism, evidence of alcoholic liver disease and rule out esophageal varices, peptic ulcer disease, gastritis. PLAN: At this time, recommend wait for the ultrasound of the upper abdomen. Recommend hepatitis pa conchis. Recommend upper endoscopy and colonoscopy. Once again, Dr. Massey, thank you for this consultation. Dictated By: CHER JUÁREZ MD NC/NTS Conf#: [id number] DID#: [id number] CC: MINNA MASSEY MD;*EndCC*
--- NOTE | 2017-09-02 09:28 | QN ---
Documentation Comment The patient was seen and examined. Gastroenterology consult was already called. The patient denies any hematochezia/melena at this time. Case discussed with Dr. Villa. ZAC MCKAY NP Sep 02, 2017 09:28
[2017-09-02] MEDS ORDERED: POTASSIUM CHLORIDE (SR) 10 MEQ TAB PO ONE (09:30)
[2017-09-02] MEDS: CHLORDIAZEPOXIDE 25 MG CAP PO SCH (09:42)
[2017-09-02 11:36] LABS: INR 0.94; PROTIME 12.6 Sec (12.2-14.2)
[2017-09-02 11:37] LABS: PARTIAL THROMBOPLASTIN TIME 25.9 Sec (25.0-35.0)
[2017-09-02 12:25] LABS: HEMATOCRIT 37.9 % (42.0-52.0); HEMOGLOBIN 13.3 g/dl (14.0-18.0)
--- NOTE | 2017-09-02 18:38 | RADRPT ---
PROCEDURE: Right upper quadrant ultrasound CLINICAL INDICATION: Abnormal liver function tests TECHNIQUE: Multiple real-time images were acquired of the patient's abdomen and right retroperiton eum utilizing a high resolution transducer. COMPARISON: 05/04/2017 FINDINGS: The liver is increased in echogenicity and measures 19.8 cm. No focal hepatic masses are seen. The gallbladder is physiologically distended. There is no evidence of gallstones, gallbladder wall thi ckening, or pericholecystic fluid. The intra and extrahepatic bile ducts are normal in caliber. Th e common bile duct measures 4.0 mm. Midline images demonstrate the pancreas to be normal in echogenicity without obvious inflammatory ch arnel. Pancreatic tail is suboptimally seen Survey views of the right kidney demonstrate no evidence of hydronephrosis or renal calculi. The ri ght kidney measures 11.6 cm. IMPRESSION: 1. No evidence of cholelithiasis or acute cholecystitis. 2. No biliary duct dilatation. 3. Fatty liver RPTAT: HH .Eduardo Huynh MD, MD Date Time Electronically viewed and signed by .Eduardo Huynh MD, on 09/02/2017 18:37 .W/
[2017-09-02 20:22] LABS: HAAIG REFLEX REFLEX FILED
--- NOTE | 2017-09-02 20:49 | DS ---
Date/Time of Note Date/Time of Note DATE: 09/02/17 TIME: 20:48 Discharge Summary Admission/Discharge Info Admit Date/Time Sep 02, 2017 at 14:19 Discharge Date/Time Sep 02, 2017 at 18:15 LEFT AGAINST MEDICAL ADVICE Discharge Diagnosis 1. Hematochezia. 2. Essential hypertension. 3. Alcohol withdrawal. 4. Transaminitis without hyperbilirubinemia. 5. Nicotine use. Patient Condition: Fair Consults 1. Bonifacio Melchor MD, Gastroenterology. Procedures Liver US IMPRESSION: 1. No evidence of cholelithiasis or acute cholecystitis. 2. No biliary duct dilatation. 3. Fatty liver CXR IMPRESSION: Negative for evidence of an acute chest process. Hx of Present Illness Chief complaint: Palpitations,anxiety, and bright red blood per rectum This is a 47-year-old male with a history of alcoholism presenting to the ER complaining of palpitations and anxiety. He stated that he was having a panic attack. He has been binge drinking for the past week after being sober prior to that. He also complained of bright red blood per rectum with bowel movements which are intermittent. He denied any associated abdominal pain other than right upper quadrant pain. No nausea, vomiting, hematemesis, fever, chills, chest pain, shortness of breath. The patient stated that he has been dealing with alcoholism for quite some time. He denied any social issues for his drinking, he stated that he drinks because he likes it. He did report that he wanted to quit and that he has gone to rehab but he has relapsed. He also reported that he smokes 1 pack per day 30 years. Allergies: NKDA Medications: See [facility] Hospital Course The patient was admitted to inpatient telemetry floor. Gastroenterology consult was obtained. The patient was started on proton pump inhibitors. The patient was evaluated by gastroenterology and the patient was scheduled for esophagogastroduodenoscopy and colonoscopy for further evaluation of his underlying gastrointestinal bleeding. The patient was maintained on tapering dose of Librium for any underlying alcohol withdrawal. He was maintained on multivitamins. He has underlying essential hypertension and he was maintained on antihypertensives for the same. Towards the end of the day of 09/02/2017, the patient wanted to leave the hospital AGAINST MEDICAL ADVICE. He was advised on the consequences of leaving the hospital AGAINST MEDICAL ADVICE including the possibility of . Nevertheless, he wanted to leave the hospital against medical advice. No discharge planning was done since patient left the hospital against medical advice. Case discussed with Dr. Villa. Home Meds Active Scripts Naproxen* (Naproxen*) 500 Mg Tablet, 500 MG PO BID Y for PAIN, #14 TAB Prov:AMY WESTBROOK DO 05/04/17 Ondansetron (Zofran Odt) 4 Mg Tab.rapdis, 4 MG PO Q6 for NAUSEA AND/OR VOMITING , #10 Prov:AMY WESTBROOK DO 05/04/17 Chlordiazepoxide* (Chlordiazepoxide*) 25 Mg Capsule, 25 MG PO taper, #13 CAP take 3 tabs Thursday and Thursday, take 2 tabs and thursday take 1 tab for last three days. Prov:AMY WESTBROOK 05/04/17 Pantoprazole* (Protonix*) 40 Mg Tablet.dr, 40 MG PO DAILY, #20 TAB Prov:JEFF WILKINSON MD 06/21/15 Folic Acid* (Folic Acid*) 1 Mg Tablet, 1 MG PO DAILY, #30 TAB Prov:LYNDA CASILLAS MD 06/01/15 Reported Medications Metoprolol Tartrate* (Lopressor*) 50 Mg Tab, 50 MG PO BID, #60 TAB 02/28/17 Benazepril Hcl* (Benazepril Hcl*) 20 Mg Tablet, 20 MG PO DAILY, #30 TAB 02/28/17 Multivitamins* (Once Daily*) 1 Tab Tablet, 1 TAB PO DAILY, TAB 08/27/15 Ferrous Sulfate (Iron) 325 Mg Capsr, 325 MG PO DAILY 05/14/15 Follow-up Plan No follow-up plan was made since the patient AMA. Primary Care Provider [facility] Time spent on discharge: < 30 minutes Pending Labs Laboratory Tests Test 09/02/17 05:50 09/02/17 05:52 09/02/17 10:31 09/02/17 12:11 Hepatitis A Antibody Total Pending Hepatitis B Surface Antigen Pending Hepatitis B Core Total Antibody Pending Hepatitis C Antibody Pending Hemoglobin 13.2g/dl (14.0-18.0) 13.3g/dl (14.0-18.0) Hematocrit 37.5% (42.0-52.0) 37.9% (42.0-52.0) Sodium Level 137mmol/L (135-144) Potassium Level 3.4mmol/L (3.5-5.1) Chloride Level 95mmol/L (97-110) Carbon Dioxide Level 32mmol/L (21-31) Anion Gap 13 (8-16) Blood Urea Nitrogen 20mg/dl (7-20) Creatinine 0.82mg/dl (0.61-1.24) Glucose Level 119mg/dl (70-220) Hemoglobin A1c 5.4% (0-5.9) Calcium Level 8.7mg/dl (8.4-10.2) Magnesium Level 1.4mg/dl (1.7-2.5) Total Bilirubin 0.9mg/dl (0.2-1.3) Direct Bilirubin 0.00mg/dl (0.00-0.20) Indirect Bilirubin 0.9mg/dl (0-1.1) Aspartate Amino Transf (AST/SGOT) 103IU/L (15-46) Alanine Aminotransferase (ALT/SGPT) 125IU/L (13-69) Alkaline Phosphatase 60IU/L (42-121) Total Protein 6.7g/dl (6.1-8.1) Albumin 3.9g/dl (3.3-4.9) Globulin 2.80g/dl (1.3-3.2) Albumin/Globulin Ratio 1.39 Triglycerides Level 48mg/dl (0-149) Cholesterol Level 186mg/dl (100-200) LDL Cholesterol, Calculated 131mg/dl HDL Cholesterol 45mg/dl (27-67) Cholesterol/HDL Ratio 4.1RATIO Thyroid Stimulating Hormone (TSH) 2.050MIU/L (0.465-4.680) Prothrombin Time 12.6Sec (12.2-14.2) Prothrombin Time Ratio 1.0 INR International Normalized Ratio 0.94 Activated Partial Thromboplast Time 25.9Sec (25.0-35.0) ZAC MCKAY NP Sep 02, 2017 20:49
[2017-09-02 21:20] LABS: HEPATITIS B CORE ANTIBODY NEGATIVE (NEGATIVE)
[2017-09-02] MEDS ORDERED: CHLORDIAZEPOXIDE 25 MG CAP PO SCH (22:00)
[2017-09-03] MEDS ORDERED: CHLORDIAZEPOXIDE 25 MG CAP PO SCH (22:00)
== END 2017-09-02 18:15 | disposition left against medical advice (07) | DRG 894 ==
LOC: E/R 16:22 → MS3 22:09 → OBSVTOIN 09-02 14:19
PROVIDERS: ADMIT Family Medicine; ATTEND Family Medicine
DX: F10.230 Alcohol dependence with withdrawal, uncomplicated (principal); K92.2 Gastrointestinal hemorrhage, unspecified; K70.10 Alcoholic hepatitis without ascites; E86.0 Dehydration; I10 Essential (primary) hypertension; Z72.0 Tobacco use
CPT/HCPCS: 36415; 71010; 76705; 80053; 80061; 80306; 80307; 81001; 82607; 82746; 83036; 83690; 83735; 84443; 85014; 85018; 85025; 85610; 85730; 86704; 86706; 86708; 86709; 86803; 87340; 93005; 96374; 96376; C9113; G0378; J2060; J3411; J7030

== ENCOUNTER 2017-11-01 13:24 | Inpatient (IN) | END 2017-11-01 21:46 | disposition left against medical advice (07) | DRG 438 ==

== ENCOUNTER 2017-11-16 01:47 | Emergency (ER) | END 2017-11-16 05:45 | disposition home or self-care (01) ==

== ENCOUNTER 2018-02-05 03:45 | Observation (INO) | END 2018-02-05 20:25 | disposition left against medical advice (07) ==

== ENCOUNTER 2018-04-27 19:27 | Emergency (ER) | END 2018-04-27 20:54 | disposition left against medical advice (07) ==